=== PATIENT | female | born 1945 | race Caucasian/White ===

== ENCOUNTER 2016-11-18 01:39 | Inpatient (IN) | payer MEDICARE ==
[~2016-11-18] VITALS: Ht 160 cm; Wt 93.2 kg
[2016-11-18] VITALS (21 sets, daily range): BP systolic 72–136; BP diastolic 53–79
[2016-11-18] MEDS ORDERED: ADENOSINE 6 MG/2 ML VIAL. IV ONE (01:43)
[2016-11-18] MEDS ORDERED: MIDAZOLAM HCL/PF 2 MG/2 ML VIAL. ONE ×2 (01:56→09:03)
[2016-11-18] MEDS ORDERED: dilTIAZem IV PUSH 25 MG/5 ML VIAL ONE (01:57)
--- NOTE | 2016-11-18 02:11 | PHYS DOC ---
Past Medical History Past Medical History: No Pertinent History Additional Past Surgical Histo: Knee Smoking: Quit Greater Than 1 Year (40 years ago) Social History Narrative: lives alone Adult General Chief Complaint Chief Complaint: CHEST PAIN HPI HPI Patient is a 70 year old female who presents with chest pain and SOA. She states the pain started Tuesday am. The pain is left sided; dull pressure. It has been "off and on." She called EMS because she was becoming more SOA. She vomited en route (beet juice). She denies any medications or cardiac history. EMS called a "STEMI" from the field; EKG did not transmit. Upon arrival she was diaphoretic and clearly in distress. She was complaining mainly of SOA; she states the chest pain is resolved at this time. No back pain; no abdominal pain. No recent illness. No travel. Review of Systems Review of Systems Constitutional: Denies fever or chills Eyes: Denies change in visual acuity, redness, or eye pain HENT: Denies nasal congestion or sore throat Respiratory: Denies cough; complains of shortness of breath Cardiovascular: see HPI GI: Denies abdominal pain, nausea, vomiting, bloody stools or diarrhea : Denies dysuria or hematuria Musculoskeletal: Denies back pain or joint pain Integument: Denies rash or skin lesions Neurologic: Denies headache, focal weakness or sensory changes Current Medications Current Medications Current Medications Medications (Trade) Dose Ordered Sig/Consuelo Start Time Stop Time Status Last Admin Dose Admin Adenosine (Adenocard) 6 mg STK-MED ONCE 11/18/16 01:43 11/18/16 01:44 DC Diltiazem HCl (Cardizem) 25 mg STK-MED ONCE 11/18/16 01:57 11/18/16 01:58 DC Midazolam HCl (Versed) 2 mg STK-MED ONCE 11/18/16 01:56 11/18/16 01:57 DC Allergies Allergies Allergies Coded Allergies Type Severity Reaction Last Updated Verified Penicillins Allergy Intermediate 11/18/16 Yes Physical Exam Physical Exam Constitutional: Well developed, well nourished, no acute distress, non-toxic appearance. HENT: Normocephalic, atraumatic, bilateral external ears normal, oropharynx moist, no oral exudates, nose normal. Eyes: PERRLA, EOMI, conjunctiva normal, no discharge. Neck: Normal range of motion, no tenderness, supple, no stridor. Cardiovascular:Heart rate regular rhythm, no murmur Lungs & Thorax: Bilateral breath sounds clear to auscultation Abdomen: Bowel sounds normal, soft, no tenderness, no masses, no pulsatile masses. Skin: Warm, dry, no erythema, no rash. Back: No tenderness, no CVA tenderness. Extremities: No tenderness, no cyanosis, no clubbing, ROM intact, no edema. Neurologic: Alert and oriented X 3, normal motor function, normal sensory function, no focal deficits noted. Psychologic: Affect normal, judgement normal, mood normal. Current Patient Data Vital Signs Vital Signs Date Time Temp Pulse Resp B/P (MAP) Pulse Ox O2 Delivery O2 Flow Rate FiO2 11/18/16 02:12 108 137/94 (108) 98 NonRebreather Mask 11/18/16 01:40 97.6 32 97.6 Lab Values Laboratory Tests Test 11/18/16 01:54 11/18/16 01:55 POC Troponin I 10.52 ng/ml (<0.08) White Blood Count 21.6 x10^3/uL (4.0-11.0) H Red Blood Count 5.15 x10^6/uL (3.50-5.40) Hemoglobin 15.4 g/dL (12.0-15.5) Hematocrit 46.3 % (36.0-47.0) Mean Corpuscular Volume 90 fL (79-100) Mean Corpuscular Hemoglobin 30 pg (25-35) Mean Corpuscular Hemoglobin Concent 33 g/dL (31-37) Red Cell Distribution Width 13.1 % (11.5-14.5) Platelet Count 287 x10^3/uL (140-400) Neutrophils (%) (Auto) 68 % (31-73) Lymphocytes (%) (Auto) 22 % (24-48) L Monocytes (%) (Auto) 10 % (0-9) H Eosinophils (%) (Auto) 0 % (0-3) Basophils (%) (Auto) 1 % (0-3) Neutrophils # (Auto) 14.6 x10^3uL (1.8-7.7) H Lymphocytes # (Auto) 4.7 x10^3/uL (1.0-4.8) Monocytes # (Auto) 2.1 x10^3/uL (0.0-1.1) H Eosinophils # (Auto) 0.1 x10^3/uL (0.0-0.7) Basophils # (Auto) 0.2 x10^3/uL (0.0-0.2) Segmented Neutrophils % 68 % (35-66) H Band Neutrophils % 1 % (0-9) Lymphocytes % 23 % (24-48) L Monocytes % 7 % (0-10) Eosinophils % 1 % (0-5) Platelet Estimate Adequate (ADEQUATE) Prothrombin Time 14.2 SEC (11.7-14.0) H Prothrombin Time INR 1.2 (0.8-1.1) H PTT 25 SEC (24-38) Laboratory Tests 11/18/16 01:55 Laboratory Tests Test 11/18/16 01:54 11/18/16 01:55 Bedside Troponin I 10.52 ng/ml White Blood Count 21.6 x10^3/uL Red Blood Count 5.15 x10^6/uL Hemoglobin 15.4 g/dL Hematocrit 46.3 % Mean Corpuscular Volume 90 fL Mean Corpuscular Hemoglobin 30 pg Mean Corpuscular Hemoglobin Concent 33 g/dL Red Cell Distribution Width 13.1 % Platelet Count 287 x10^3/uL Neutrophils (%) (Auto) 68 % Lymphocytes (%) (Auto) 22 % Monocytes (%) (Auto) 10 % Eosinophils (%) (Auto) 0 % Basophils (%) (Auto) 1 % Neutrophils # (Auto) 14.6 x10^3uL Lymphocytes # (Auto) 4.7 x10^3/uL Monocytes # (Auto) 2.1 x10^3/uL Eosinophils # (Auto) 0.1 x10^3/uL Basophils # (Auto) 0.2 x10^3/uL Segmented Neutrophils % 68 % Band Neutrophils % 1 % Lymphocytes % 23 % Monocytes % 7 % Eosinophils % 1 % Platelet Estimate Adequate Prothrombin Time 14.2 SEC Prothromb Time International Ratio 1.2 Activated Partial Thromboplast Time 25 SEC Current Medications Medications (Trade) Dose Ordered Sig/Consuelo Route PRN Reason Start Time Stop Time Status Last Admin Dose Admin Adenosine (Adenocard) 6 mg STK-MED ONCE IV 11/18/16 01:43 11/18/16 01:44 DC Midazolam HCl (Versed) 2 mg STK-MED ONCE .ROUTE 11/18/16 01:56 11/18/16 01:57 DC Diltiazem HCl (Cardizem) 25 mg STK-MED ONCE .ROUTE 11/18/16 01:57 11/18/16 01:58 DC EKG EKG EKG interpreted by myself (0143 AM) with a fib; BBB; diffuse ST changes. ? STEMI -no prior EKG Repeat EKG at 0226 AM: interpreted by myself; afib rate 99; nonsp ST changes; IVCD Radiology/Procedures Radiology/Procedures CXR: interpreted by myself. Diffuse pulm edema; Course & Med Decision Making Course & Med Decision Making Pertinent Labs and Imaging studies reviewed. (See chart for details) Met patient upon arrival by EMS. Diffuse diaphoresis; anxious. EKG (no prior) with afib but BBB-unknown if this is new. called STEMI. Spoke with Dr Kraft ; treat for afib. BP 163/125; cardizem bolus and drip. Spoke again with Dr Kraft and will start on Heparin and admit ICU. CXR with pulm edema;Lasix IV. Lab returned at 0230 AM: trop 10.52; EKG with afib with BBB. recontacted Dr Kraft and he will cath this am. BP 144/112, P 95 at 0225 AM. 0345 am: BP 158/85, R 114 but in afib; on 10 mg Cardizem; heparin drip. U.O. approx 800 cc thus far. On nasal cannula and resting much more comfortably. admit orders placed; contacted Dr Fragoso for admission Dragon Disclaimer Felicitas Disclaimer This electronic medical record was generated, in whole or in part, using a voice recognition dictation system. Departure Departure Impression: Primary Impression: Acute coronary syndrome Additional Impressions: Atrial fibrillation with rapid ventricular response Acute pulmonary edema Disposition: ADMITTED INPATIENT Admitting Physician: Perfecto Fragoso Condition: CRITICAL Referrals: NO PCP (PCP) Critical Care Note Total Time (mins): 30 Comments Critical care: She was evaluated for critical care with life-threatening injury and illness. Care included evaluation patient, interpretation of lab, radiology , EKG. Discussion with EMS, discussion with consultants. Problems: Critical Care Time Critical care time was 30 minutes exclusive of procedures. Problem Qualifiers EDSON SÁNCHEZ MD November 18, 2016 02:11
[2016-11-18 02:14] LABS: BASO # 0.2 x10^3/uL (0.0-0.2); BASO % 1 % (0-3); EOS % 0 % (0-3); HEMATOCRIT 46.3 % (36.0-47.0); HEMOGLOBIN 15.4 g/dL (12.0-15.5); LYMPH # 4.7 x10^3/uL (1.0-4.8); LYMPH % 22 % (24-48); MEAN CORPUSCULAR HEMOGLOBIN 30 pg (25-35); MEAN CORPUSCULAR HGB CONC 33 g/dL (31-37); MEAN CORPUSCULAR VOLUME 90 fL (79-100); MONO % 10 % (0-9); NEUT % 68 % (31-73); PLATELET COUNT 287 x10^3/uL (140-400); RED BLOOD COUNT 5.15 x10^6/uL (3.50-5.40); RED CELL DISTRIBUTION WIDTH 13.1 % (11.5-14.5); WHITE BLOOD COUNT 21.6 x10^3/uL (4.0-11.0)
[2016-11-18 02:23] LABS: INR 1.2 (0.8-1.1); PROTHROMBIN TIME PATIENT 14.2 SEC (11.7-14.0)
[2016-11-18] MEDS ORDERED: HEPARIN for IV BOLUS 10,000 UNIT/10 ML VIAL. IV PRN (02:30)
[2016-11-18] MEDS ORDERED: dilTIAZem IV PUSH 25 MG/5 ML VIAL IVP ONE (02:30)
[2016-11-18] MEDS: HEPARIN 25,000UTS/500ML PREMIX 500 ML IV PRN ×2 (02:52→07:40)
[2016-11-18 03:00] LABS: CALCIUM 8.7 mg/dL (8.5-10.1); CREATININE 0.7 mg/dL (0.6-1.0); POTASSIUM 4.4 mmol/L (3.5-5.1)
[2016-11-18] MEDS ORDERED: FUROSEMIDE 40 MG/4 ML VIAL. IVP ONE (03:00)
[2016-11-18] MEDS ORDERED: HEPARIN for IV BOLUS 10,000 UNIT/10 ML VIAL. IV ONE (03:00)
[2016-11-18 03:07] LABS: ALBUMIN 3.4 g/dL (3.4-5.0); ALBUMIN/GLOBULIN RATIO 1.1 (1.0-1.7); TOTAL BILIRUBIN 0.9 mg/dL (0.2-1.0); TOTAL PROTEIN 6.5 g/dL (6.4-8.2)
[2016-11-18 03:13] LABS: CKMB MASS 153.2 ng/mL (0.0-3.6)
[2016-11-18] MEDS ORDERED: ONDANSETRON PF 4 MG/2 ML VIAL. IV PRN (04:00)
[2016-11-18] MEDS ORDERED: HEPARIN 25,000UTS/500ML PREMIX 500 ML IV ONE (04:00)
[2016-11-18 04:10] LABS: % EOS 1 % (0-5)
[2016-11-18 04:11] LABS: PLT ESTIMATE ADEQUATE (ADEQUATE)
[2016-11-18] MEDS ORDERED: MORPHINE SULFATE 2 MG/ML DISP.SYRIN. IV ONE (04:15)
[2016-11-18 04:19] LABS: BILIRUBIN,URINE NEGATIVE (NEG); GLUCOSE,URINE 500 mg/dL (NEG); NITRITE,URINE NEGATIVE (NEG); PH,URINE 5.5; PROTEIN,URINE 30 mg/dL (NEG-TRACE); UROBILINOGEN,URINE 0.2 mg/dL (0.2 mg/dL)
[2016-11-18 04:32] LABS: BACTERIA,URINE MOD /HPF (0-FEW); SQUAMOUS EPITHELIAL CELL,UR MOD /LPF
--- NOTE | 2016-11-18 04:51 | ACF ---
Admission Forms Criteria CHEST PAIN Clinical Indications for Admission to Inpatient Care (Place 'X' for any and all applicable criteria): Admission is indicated for chest pain and ANY ONE of the following(1)(2)(3)(4)(5 ): [X]I. Angina with acute coronary syndrome (Also use Myocardial Infarction or Angina guideline) [ ]II. Hemodynamic instability [ ]III. Angina needing acute intervention as indicated by ALL of the following( 11)(12): [ ]a) Unstable angina is present as indicated by angina that is ANY ONE of the following: [ ]i) New onset [ ]ii) Nocturnal [ ]iii) Prolonged at rest [ ]iv) Progressive [ ]b) Angina warrants acute intervention as indicated by ANY ONE of the following: [ ]i) Recurrent angina (e.g, not responding as previously to treatment) [ ]ii) Angina at rest or with low-level activities despite initial medical therapy [ ]iii) New or presumably new ST-segment depression on ECG [ ]iv) Signs or symptoms of heart failure (eg, dyspnea, pulmonary edema) [ ]v) New or worsening mitral regurgitation [ ]vi) Hemodynamic instability [ ]vii) Dangerous arrhythmia (eg, sustained ventricular tachycardia) [ ]viii) History of percutaneous coronary intervention within 6 months [ ]ix) History of coronary artery bypass graft surgery [ ]x) EBONI risk score of 2 or greater[A] [ ]xi) History of Diabetes(14) [ ]xii) High-risk cardiac ischemia findings on noninvasive testing (e.g, echocardiogram, treadmill testing, nuclear scan) [ ]xiii) Chronic renal insufficiency (ie, estimated GFR less than 60 mL/min/1.732m) [ ]xiv) Left ventricular ejection fraction less than 40% [ ]IV. Evidence of WI (eg, cardiac biomarkers positive, ST-segment elevation on ECG) also use Myocardial Infarction Criteria Form. [ ]V. Pulmonary edema [ ]. Respiratory distress [ ]VII. Chest pain indicative of serious diagnosis other than coronary artery disease (eg, aortic dissection) [ ]VIII. Contraindications and/or Inappropriate clinical situations for Observational Care in patients with Chest Pain, when ANY ONE of the following is required: [ ]a) Patient with risk factor for pulmonary embolism, acute coronary syndrome and myocardial infarction (18) [ ]b) Patient with Pulmonary embolism require an average LOS of 4.3 days, therefore emergency department observation management is inappropriate 18,23 [ ]c) Painful condition/s in the elderly, have the highest rate of recidivism after emergency department observation management (10.8%) 20,21,22 [ ]d) Elevated cardiac biomarker requires intensive and exhaustive care (19) [ ]IX. General contraindications and/or Inappropriate clinical situations for Observational Care in patients with Chest Pain, when ANY ONE of the following is required: [ ]a) Prediction of prolongation of LOS based on ANY ONE of the following may be considered as a contraindication for observational care 2, 3, 4, 5, 6, 7, 8, 9, 10, 11 [ ]i) Age > 65 yrs. [ ]ii) Patient arriving by ambulance [ ]iii) Patient with high acuity [ ]iv) Patient requiring vital sign monitoring [ ]v) Patient on IV medication [ ]b) Systolic blood pressures 180mmHg 3,12 [ ]c) Patient with altered mental status including delirium and other alteration of consciousness, (3) [ ]d) Patient whose discharge disposition will be to a assisted home or rehabilitation home should not be managed in Emergency Department Observation Unit. CMS rule requires 3 days hospital stay before such placement. 3,13 [ ]e) Patient with failure to thrive due to broad array of etiologies 3,16,17 [ ]f) Inability to ambulate 3,14 Extended stay beyond goal length of stay may be needed for (1)(28): [ ]a) Specific condition diagnosed after evaluation (eg, pulmonary embolism, aortic dissection) [ ]b) Unstable angina [ ]c) Continued suspicion of acute coronary syndrome with inability to complete needed cardiac evaluation (eg, patient clinically unable to undergo stress testing) [ ]d) Myocardial infarction (Contents from ANGINA and CHEST PAIN clinical indications for admission to inpatient care have been integrated in this form) The original [facility] content created by [employer] has been revised. The portions of the content which have been revised are identified through the use of italic text or in bold, and [facility] has neither reviewed nor approved the modified material. All other unmodified content is copyright [employer]. Please see references footnoted in the original [facility] edition 2016 Admission Criteria Met?: Yes JOHN NAGEL November 18, 2016 04:51
[2016-11-18] MEDS ORDERED: MULT-667 PO (06:56)
[2016-11-18] MEDS ORDERED: CYCL1DRO EACHEYE (06:56)
[2016-11-18] MEDS ORDERED: CHOL10003 PO (06:56)
[2016-11-18] MEDS ORDERED: LORA10TA68 PO (06:56)
[2016-11-18] MEDS ORDERED: MAGN400C PO (06:56)
[2016-11-18 07:12] LABS: POTASSIUM ISTAT 5.1 mmol/L (3.5-5.0)
[2016-11-18] MEDS ORDERED: ASCO500T3 PO (07:12)
--- NOTE | 2016-11-18 07:49 | RAD ---
Indication chest pain. A single view of the chest was obtained. No prior imaging is available. Heart size is normal. There is interstitial prominence most suggestive of mild interstitial pulmonary edema. (A component of fibrosis or inflammation is not entirely excluded. Clinical correlation advised). A focal consolidated pneumonia is not seen. There are perhaps tiny pleural effusions. There is no pneumothorax. IMPRESSION: Probable mild interstitial edema. No focal consolidated pneumonia seen
--- NOTE | 2016-11-18 07:49 | EKG ---
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
--- NOTE | 2016-11-18 07:50 | EKG ---
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
--- NOTE | 2016-11-18 07:51 | EKG ---
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
[2016-11-18] MEDS ORDERED: LIDOCAINE 2% 20 ML VIAL. ONE ×2 (08:30→10:35)
[2016-11-18] MEDS ORDERED: IOHEXOL 300 MG/ML 100ML VIAL. ONE (08:31)
[2016-11-18] MEDS ORDERED: HEPARIN for ARTERIAL LINE 1,500 ML ONE (08:31)
--- NOTE | 2016-11-18 09:00 | PDOC ---
MODERATE SEDATION ASSESSMENT RISKS/ALTERNATIVES Risks/Alternatives Risks and alternatives of this type of sedation and procedure discussed with: RISK/ALTERNATIVES: Patient H & P ON CHART H & P H & P on chart and reviewed for co-morbid conditions and appropriate labs. H&P ON CHART: Yes STATUS PREG STATUS ASSESSED: N/A MEDS/ALLERGIES REVIEWED Meds/Allergies Reviewed Medications and Allergies including time and route of recently administered narcotics and sedatives. MEDS/ALLERGIES REVIEWED: Yes ASA RATING ASA RATING: III AIRWAY ASSESSMENT Airway Assessment Airway patency, oral function limitations, presence of caps, crowns, dentures, partials, and ability to extend neck assessed. AIRWAY ASSESSMENT: Yes MALLAMPATI SCORE MALLAMPATI SCORE: III PRE-SEDATION ASSESSMENT PRE-SEDATION ASSESSMENT: Yes JOHNATHON RYAN MD November 18, 2016 09:00
[2016-11-18] MEDS ORDERED: NITROGLYCERIN 200 MCG/2 ML SYRINGE FOR CATH/VASC LAB. ONE (09:02)
[2016-11-18] MEDS ORDERED: VERAPAMIL 5 MG/2 ML VIAL. ONE (09:02)
[2016-11-18] MEDS ORDERED: HEPARIN for IV BOLUS 10,000 UNIT/10 ML VIAL. ONE (09:03)
[2016-11-18] MEDS ORDERED: fentaNYL PF VIAL 100 MCG/2 ML VIAL ONE (09:03)
[2016-11-18] MEDS ORDERED: TIROFIBAN 12.5MG -0.9% NS 0 ML IV ONE (09:27)
[2016-11-18] MEDS ORDERED: BIVALIRUDIN 250 MG VIAL. IV ONE (09:27)
[2016-11-18] MEDS ORDERED: MIDAZOLAM HCL/PF 2 MG/2 ML VIAL. IV ONE (09:45)
[2016-11-18] MEDS ORDERED: HEPARIN for IV BOLUS 10,000 UNIT/10 ML VIAL. IART ONE (09:45)
[2016-11-18] MEDS ORDERED: CLOPIDOGREL BISULFATE 75 MG TABLET PO ONE (09:45)
[2016-11-18] MEDS ORDERED: NITROGLYCERIN 200 MCG/2 ML SYRINGE FOR CATH/VASC LAB. IART ONE (09:45)
[2016-11-18] MEDS ORDERED: IOHEXOL 300 MG/ML 100ML VIAL. IART ONE (09:45)
[2016-11-18] MEDS ORDERED: LIDOCAINE 1% / SOD BICARB 8.4% 20 ML VIAL. IJ ONE (09:45)
[2016-11-18] MEDS ORDERED: fentaNYL PF VIAL 100 MCG/2 ML VIAL IV ONE (09:45)
[2016-11-18] MEDS ORDERED: CONTRAST GIVEN MC PRN (09:45)
[2016-11-18] MEDS ORDERED: VERAPAMIL 5 MG/2 ML VIAL. IART ONE (09:45)
[2016-11-18] MEDS ORDERED: CLOPIDOGREL BISULFATE 75 MG TABLET ONE (09:46)
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
[2016-11-18] MEDS ORDERED: PNEUMOCOCCAL VAX SCREEN BY RX. MC PRN (11:30)
--- NOTE | 2016-11-18 11:50 | CARD ---
APPROVED REPORT Procedure(s) performed: Left Heart Catheterization, Coronary angiography, Left ventriculogram HISTORY The patient is a 70 year-old female with a history of : hypertension. INDICATION The indication(s) include : non-STEMI Trop of 15., atrial fibrillation, dyspnea. PROCEDURE NARRATIVE The patient was brought urgently to the cardiac catheterization lab. A timeout was performed confirm ing the patient's name, date of , procedure, and site of procedure. All necessary personnel wer e wearing the appropriate protective equipment and radiation monitor devices. After explaining the r isks and benefits of the procedure and alternatives, informed consent was obtained. (See nursing note s for medications administered). The right wrist was sterilely prepped and draped in the usual fashi on. The right wrist was infiltrated with 1 mL of 2% lidocaine for subcutaneous anesthesia. A 6 Fren ch Terumo glide sheath was inserted into the right radial artery without difficulty. Right and left coronary angiography was performed using a 6Fr TIG 4.0 catheter. Left ventricular end diastolic pres sure was obtained with a pigtail catheter and pullback was performed after left ventriculography. Al l catheter exchanges and advancements were performed over a guidewire. At case completion the right radial sheath was removed and a Terumo radial band was applied with 13 ml of air. The patient tolera diego the procedure well and there were no immediate complications. HEMODYNAMICS: LVEDP 18 mm Hg No gradient on LV to aortic pullback. LEFT VENTRICULOGRAM: EF 25% Anterobasal: Normal. Anterolateral: moderate hypokinesis Apical: moderate hypokinesis. Diaphragmatic: Akinesis Posterobasal: Normal CORONARY ANGIOGRAPHY: LM is a large caliber vessel with normal angiographic appearance. LAD is a large caliber vessel with normal angiographic appearance. D1 is a moderate caliber vessel with a proximal 50-60% stenosis. LCx is a moderate caliber non-dominant vessel with normal angiographic appearance. OM1 is a moderate caliber vessel with normal angiographic appearance, the most distal portion of the vessel has sluggish flow and cannot rule out presence of embolic phenomenon in the setting of afib. RCA is a large caliber dominant vessel with proximal to mid 30% stenosis. RPDA and RPL are moderate caliber vessels with normal angiographic appearance. Conclusion 1. Severe LV dysfunction. EF 25% 2. Normal left ventricular filling pressures. 3. Two vessel coronary artery disease involving the OM1 and Diagonal. 4. Possible embolic infarct of the very distal OM1. 5. 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 Recommendations Aggressive medical therapy to include ASA, Plavix and initiation of Eliquis Plan for NOLA/CVN tomorrow. HF regimen to be started later today as BP/HR allows.
[2016-11-18] MEDS: CLOPIDOGREL BISULFATE 75 MG TABLET PO SCH (14:00)
[2016-11-18] MEDS ORDERED: BENZOCAINE ONE 20% MUCOSAL SPRAY. MM (14:15)
[2016-11-18] MEDS ORDERED: LIDOCAINE 2% TOPICAL JELLY 5GM TUBE. TP ONE (14:15)
[2016-11-18] MEDS ORDERED: LIDOCAINE 2% VISCOUS 15 ML SOLUTION. MM ONE (14:15)
[2016-11-18] MEDS ORDERED: 0.9 % SODIUM CHLORIDE 10 ML DISP.SYRIN. IV PRN ×2 (14:15)
--- NOTE | 2016-11-18 15:25 | HP ---
ADMIT DATE: 11/18/2016 CHIEF COMPLAINT: Chest pain. HISTORY OF PRESENT ILLNESS: The patient is a pleasant 71-year-old female who appears to be younger than her stated age. She presented with chest pain last night. It has been occurring for a couple of days, was left sided, pressure-like in sensation. She tried taking some [id number] medications, but that did not seem to help. EMS was called. She was brought to the ER. She was then taken to the [facility] this morning. Surprisingly, her catheterization was clean, but she did have a bump in her troponin before the catheterization to 15.227. The patient is currently being examined in the ICU where her son is present. PAST MEDICAL HISTORY: Dry eyes, allergic rhinitis. ALLERGIES: PENICILLIN. FAMILY HISTORY: Coronary artery disease. SOCIAL HISTORY: She does not drink, smoke, or take drugs. MEDICATIONS: Reviewed. Please refer to the MRAD. REVIEW OF SYSTEMS: GENERAL: No history of weight change, weakness, or fevers. SKIN: No bruising, hair changes, or rashes. EYES: No blurred, double, or loss of vision. NOSE AND THROAT: No history of nosebleeds, hoarseness, or sore throat. HEART: She complains of sleepiness, and she just got out of the [facility], so she probably is a little sleepy. LUNGS: Denies cough, hemoptysis, wheezing, or shortness of breath. GASTROINTESTINAL: Denies changes in appetite, nausea, vomiting, diarrhea, or constipation. GENITOURINARY: No history of frequency, urgency, hesitancy, or nocturia. NEUROLOGIC: Denies history of numbness, tingling, tremor, or weakness. PSYCHIATRIC: No history of panic, anxiety, or depression. ENDOCRINE: No history of heat or cold intolerance, polyuria, or polydipsia. EXTREMITIES: Denies muscle weakness, joint pain, pain on walking, or stiffness. PHYSICAL EXAMINATION: VITAL SIGNS: Temperature afebrile, pulse 92, respirations 18, blood pressure 104/60, and O2 saturation 93% on room air. GENERAL: She is sleeping. She awakens. HEART: Distant S1, S2 with a soft S3. LUNGS: Slight crackles. ABDOMEN: Soft, positive bowel sounds. EXTREMITIES: 1+ edema, but is nonpitting. ENDOCRINE: No thyromegaly. LYMPHATICS: No cervical nodes. HEMATOPOIETIC: No bruising. LABORATORY DATA: White count is 21, hemoglobin 15, and platelets 287. Electrolytes: Sodium 126, potassium 5.1, chloride 96, bicarbonate 17, BUN 18, creatinine 0.5, and glucose 328. Troponin is 15.227. BNP 9694. Chest x-ray shows interstitial edema. ASSESSMENT AND PLAN: Chest pain with new onset of acute congestive heart failure, probable systolic. She also has an elevation of her troponin quite high, but her coronaries apparently were not too bad. I think the ____ lesion was 50%. Nevertheless, we are going to continue cardiac monitoring in the ICU, serial enzymes, and serial EKGs. With her hyponatremia, we are going to have to give her a little bit of sodium. We will try to keep the volume of the fluids and the sodium to a minimum, so we do not worsen her heart failure. I discussed the case at length with her son. We are also adding an IV antibiotic as I suspect she has some sepsis, and she does have urinary tract infection as well. LONG-TERM PROGNOSIS: Guarded. SUSHMA CHATMAN DO DR: AVNI/elsie JOB#: [id number] / [id number]
[2016-11-18] MEDS: APIXABAN 5 MG TABLET. PO SCH ×2 (15:43→21:15)
[2016-11-18] MEDS: CHOLECALCIFEROL (VITAMIN D3) 1,000 UNIT TABLET PO SCH (15:43)
--- NOTE | 2016-11-18 16:55 | CARD ---
APPROVED REPORT EXAM: Two-dimensional and M-mode echocardiogram with Doppler and color Doppler. Other Information Quality : Average Rhythm : Atrial Fibrillation INDICATION Cardiomyopathy 2D DIMENSIONS RVDd2.6 (2.9-3.5cm)Left Atrium(2D)3.3 (1.6-4.0cm) IVSd1.0 (0.7-1.1cm)Aortic Root(2D)3.1 (2.0-3.7cm) LVDd4.9 (3.9-5.9cm)LVOT Diameter2.0 (1.8-2.4cm) PWd1.0 (0.7-1.1cm)LVDs3.9 (2.5-4.0cm) SV49.3 mlLVEF(%)23.0 (>50%) Aortic Valve AoV Peak Abram.133.0cm/sAoV VTI23.1cm AO Peak GR.7.1mmHgLVOT VTI 14.00cm AO Mean GR.4mmHg Mitral Valve MV E Hwccyzff00.8cm/sMV E Peak Gr.88mmHg MV DECEL [id number] XXH04ms MVA (PHT)5.00cm2 Tricuspid Valve TR P. [id number]/sRAP [id number] TR Peak Gr.[id number] LEFT VENTRICLE The left ventricle is normal size. There is normal left ventricular wall thickness. Left ventricle sy stolic function is moderately to severely impaired. The Ejection Fraction is 20-25%. There is global hypokinesis of the left ventricle in a pattern suggestive of stress induced cardiomyopathy. Unable to assess diastolic function. RIGHT VENTRICLE The right ventricle is normal size. The right ventricular systolic function is normal. ATRIA The left atrium size is normal. The right atrium size is normal. The interatrial septum is intact wit h no evidence for an atrial septal defect or patent foramen ovale as noted on 2-D or Doppler imaging. AORTIC VALVE The aortic valve is normal in structure and function. The aortic valve is trileaflet. Doppler and Col or Flow revealed no significant aortic regurgitation. There is no significant aortic valvular stenosi s. MITRAL VALVE The mitral valve leaflets are thickened. There is no mitral valve stenosis. Doppler and Color Flow re vealed mild mitral regurgitation. TRICUSPID VALVE The tricuspid valve is normal in structure and function. Doppler and Color Flow revealed mild tricusp id regurgitation. The PA pressure was estimated at 37 mmHg. There is no tricuspid valve stenosis. PULMONIC VALVE The pulmonic valve is not well visualized. Doppler and Color Flow revealed no pulmonic valvular regur gitation. There is no pulmonic valvular stenosis. GREAT VESSELS The aortic root is normal in size. Pulmonary veins not well visualized. The IVC is dilated and collap ses >50% with inspiration. PERICARDIAL EFFUSION There is a moderate pleural effusion. There is a trace pericardial effusion. Critical Notification Critical Value: No <Conclusion> Left ventricle systolic function is moderately to severely impaired. The Ejection Fraction is 20-25%. There is global hypokinesis of the left ventricle in a pattern suggestive of stress induced cardiomyo robert. There is a moderate pleural effusion.
[2016-11-18] MEDS: METOPROLOL TART IMMED RELEASE 25 MG TABLET. PO SCH (18:00)
[2016-11-18] MEDS: cycloSPORINE 0.05% OPTH 1 DROP DROPERETTE OU SCH (21:13)
[2016-11-18] MEDS: ASCORBIC ACID 500 MG TABLET PO SCH (21:13)
[2016-11-19] VITALS (17 sets, daily range): BP systolic 104–151; BP diastolic 52–97
[2016-11-19] MEDS: METOPROLOL TART IMMED RELEASE 25 MG TABLET. PO SCH ×5 (01:19→23:19)
[2016-11-19 05:45] LABS: BASO % 0 % (0-3); EOS % 0 % (0-3); HEMATOCRIT 41.6 % (36.0-47.0); HEMOGLOBIN 13.8 g/dL (12.0-15.5); LYMPH # 2.5 x10^3/uL (1.0-4.8); LYMPH % 17 % (24-48); MEAN CORPUSCULAR HEMOGLOBIN 30 pg (25-35); MEAN CORPUSCULAR HGB CONC 33 g/dL (31-37); MEAN CORPUSCULAR VOLUME 89 fL (79-100); MONO % 14 % (0-9); NEUT % 69 % (31-73); PLATELET COUNT 227 x10^3/uL (140-400); RED BLOOD COUNT 4.69 x10^6/uL (3.50-5.40); RED CELL DISTRIBUTION WIDTH 12.9 % (11.5-14.5); WHITE BLOOD COUNT 15.3 x10^3/uL (4.0-11.0)
[2016-11-19 06:08] LABS: CALCIUM 8.9 mg/dL (8.5-10.1); CREATININE 0.6 mg/dL (0.6-1.0); GFR 99.1; POTASSIUM 4.3 mmol/L (3.5-5.1)
[2016-11-19] MEDS ORDERED: IV RINGERS,LACTATED 1000ML 1,000 ML IV SCH (07:00)
[2016-11-19] MEDS: ANTI-COAG MONITOR BY PHARMACY. MC PRN (08:39)
[2016-11-19] MEDS: ASPIRIN ENTERIC COATED 81 MG TABLET.DR. PO SCH (08:47)
[2016-11-19] MEDS: MAGNESIUM OXIDE 400 MG TABLET PO SCH (08:47)
[2016-11-19] MEDS: CHOLECALCIFEROL (VITAMIN D3) 1,000 UNIT TABLET PO SCH (08:47)
[2016-11-19] MEDS: cycloSPORINE 0.05% OPTH 1 DROP DROPERETTE OU SCH ×2 (08:47→20:31)
[2016-11-19] MEDS: APIXABAN 5 MG TABLET. PO SCH ×2 (08:47→20:30)
[2016-11-19] MEDS: CLOPIDOGREL BISULFATE 75 MG TABLET PO SCH (08:47)
[2016-11-19] MEDS: ASCORBIC ACID 500 MG TABLET PO SCH ×2 (08:47→20:30)
[2016-11-19] MEDS ORDERED: PNEUMOC CONJ VACC 23-VALENT 0.5 ML VIAL. VAX IM ONE (09:00)
[2016-11-19] MEDS ORDERED: BENZOCAINE ONE 20% MUCOSAL SPRAY. MM (09:00)
[2016-11-19] MEDS ORDERED: LIDOCAINE 2% TOPICAL JELLY 5GM TUBE. TP ONE (09:00)
[2016-11-19] MEDS ORDERED: LIDOCAINE 2% VISCOUS 15 ML SOLUTION. ONE (09:52)
[2016-11-19] MEDS ORDERED: LIDOCAINE 2% TOPICAL JELLY 30GM TUBE. TP ONE ×2 (09:52→14:05)
[2016-11-19] MEDS ORDERED: SODIUM CHLORIDE 3 % 200 ML IV ONE (10:45)
--- NOTE | 2016-11-19 11:12 | PDOC2 ---
CONSULT Date of Consult Date of Consult DATE: 11/19/16 TIME: 11:06 Reason for Consult Reason for Consult: HYPONATREMIA Referring Physician Referring Physician: NEYMAR Identification/Chief Complaint Chief Complaint SOB Source Source: Chart review, Patient History of Present Illness Reason for Visit: THIS IS A 70 YR OLD ADMITTED WITH PROGRESSIVE SOB. SHE WAS NOTED TO BE IN AFIB RVR AND IN CHF. HER NA IS LOW AT 123. DENIED ANY PREVIOUS PROBLEMS WITH THIS. DOES STATE THAT SHE HAS HAD A HX OF HYPOTHYROIDISM BUT HAS NOT BEEN TAKING HER THYROID SUPPLEMENTS. SHE HAS NOT BEEN TAKING ANY DIURETICS AT HOME BUT DID RECEIVE IV LASIX HERE AND HAD A GOOD DIURESIS Past Medical History Cardiovascular: AFIB, HTN ENT: Allergic Rhinitis Family History Family History: No Significant Current Problem List Problem List Problems Medical Problems: (1) Acute coronary syndrome Status: Acute (2) Acute pulmonary edema Status: Acute (3) Atrial fibrillation with rapid ventricular response Status: Acute Current Medications Current Medications Current Medications Adenosine (Adenocard) 6 mg STK-MED ONCE IV ; Start 11/18/16 at 01:43; Stop 11/18 at 01:44; Status DC Midazolam HCl (Versed) 2 mg STK-MED ONCE .ROUTE ; Start 11/18/16 at 01:56; Stop 11/18/16 at 01:57; Status DC Diltiazem HCl 125 mg/Dextrose 125 ml @ 0 mls/hr 1X ONCE IV Last administered on 11/18/16 02:07; Start 11/18/16 at 02:30; Stop 11/18/16 at 02:31; Status DC Diltiazem HCl (Cardizem) 10 mg 1X ONCE IVP Last administered on 11/18/16 01: 58; Start 11/18/16 at 02:30; Stop 11/18/16 at 02:31; Status DC Diltiazem HCl (Cardizem) 25 mg STK-MED ONCE .ROUTE ; Start 11/18/16 at 01:57; Stop 11/18/16 at 01:58; Status DC Heparin Sodium (Porcine) (Heparin Sodium) 4,000 unit 1X ONCE IV Last administered on 11/18/16 02:52; Start 11/18/16 at 03:00; Stop 11/18/16 at 13:13 ; Status DC Heparin Sodium/ Dextrose 500 ml @ 0 mls/hr CONT PRN IV SEE I/O RECORD Last administered on 11/18/16 07:40; Start 11/18/16 at 02:30; Stop 11/18/16 at 13:13 ; Status DC Heparin Sodium (Porcine) (Heparin Sodium) 2,400 unit PRN Q6HRS PRN IV FOR UFH LEVEL LESS THAN 0.2; Start 11/18/16 at 02:30; Stop 11/18/16 at 13:13; Status DC Furosemide (Lasix) 60 mg 1X ONCE IVP Last administered on 11/18/16 02:46; Start 11/18/16 at 03:00; Stop 11/18/16 at 03:01; Status DC Morphine Sulfate 2 mg 1X ONCE IV ; Start 11/18/16 at 04:15; Stop 11/18/16 at 04 :16; Status DC Ondansetron HCl (Zofran) 4 mg PRN Q8HRS PRN IV NAUSEA/VOMITING Last administered on 11/18/16 11:55; Start 11/18/16 at 04:00; Stop 11/19/16 at 03:59 ; Status DC Diltiazem HCl 125 mg/Dextrose 125 ml @ 0 mls/hr CONT PRN IV SEE I/O RECORD; Start 11/18/16 at 04:00; Stop 11/18/16 at 13:12; Status DC Heparin Sodium/ Dextrose 500 ml @ 0 mls/hr 1X ONCE IV ; Start 11/18/16 at 04:00 ; Stop 11/18/16 at 04:02; Status DC Lidocaine HCl 20 ml STK-MED ONCE .ROUTE ; Start 11/18/16 at 08:30; Stop at 08:31; Status DC Heparin Sodium/ Sodium Chloride 1,500 ml @ As Directed STK-MED ONCE .ROUTE ; Start 11/18/16 at 08:31; Stop 11/18/16 at 08:32; Status DC Iohexol (Omnipaque 300 Mg/ml) 100 ml STK-MED ONCE .ROUTE ; Start 11/18/16 at 08: 31; Stop 11/18/16 at 08:32; Status DC Nitroglycerin (Nitroglycerin) 200 mcg STK-MED ONCE .ROUTE ; Start 11/18/16 at 09 :02; Stop 11/18/16 at 09:03; Status DC Verapamil HCl (Verapamil) 5 mg STK-MED ONCE .ROUTE ; Start 11/18/16 at 09:02; Stop 11/18/16 at 09:03; Status DC Midazolam HCl (Versed) 2 mg STK-MED ONCE .ROUTE ; Start 11/18/16 at 09:03; Stop 11/18/16 at 09:04; Status DC Fentanyl Citrate (Fentanyl 2ml Vial) 100 mcg STK-MED ONCE .ROUTE ; Start at 09:03; Stop 11/18/16 at 09:04; Status DC Heparin Sodium (Porcine) (Heparin Sodium) 10,000 unit STK-MED ONCE .ROUTE ; Start 11/18/16 at 09:03; Stop 11/18/16 at 09:04; Status DC Dopamine HCl/ Dextrose 0 ml @ As Directed STK-MED ONCE IV ; Start 11/18/16 at 09 :26; Stop 11/18/16 at 09:27; Status DC Tirofiban/Sodium Chloride 0 ml @ As Directed STK-MED ONCE IV ; Start 11/18/16 at 09:27; Stop 11/18/16 at 09:28; Status DC Bivalirudin (Angiomax) 250 mg STK-MED ONCE IV ; Start 11/18/16 at 09:27; Stop at 09:28; Status DC Nitroglycerin (Nitroglycerin) 200 mcg 1X ONCE IART Last administered on 09:51; Start 11/18/16 at 09:45; Stop 11/18/16 at 09:46; Status DC Verapamil HCl (Verapamil) 2.5 mg 1X ONCE IART Last administered on 11/18/16 09:52; Start 11/18/16 at 09:45; Stop 11/18/16 at 09:46; Status DC Heparin Sodium (Porcine) (Heparin Sodium) 2,500 unit 1X ONCE IART Last administered on 11/18/16 09:50; Start 11/18/16 at 09:45; Stop 11/18/16 at 09:46 ; Status DC Heparin Sodium/ Sodium Chloride 1,000 unit 1X ONCE IART Last administered on 09:52; Start 11/18/16 at 09:45; Stop 11/18/16 at 09:46; Status DC Lidocaine/Sodium Bicarbonate (Buffered Lidocaine 1%) 1 ml 1X ONCE IJ Last administered on 11/18/16 09:45; Start 11/18/16 at 09:45; Stop 11/18/16 at 09:46 ; Status DC Midazolam HCl (Versed) 2 mg 1X ONCE IV Last administered on 11/18/16 09:54; Start 11/18/16 at 09:45; Stop 11/18/16 at 09:46; Status DC Fentanyl Citrate (Fentanyl 2ml Vial) 50 mcg 1X ONCE IV Last administered on 09:53; Start 11/18/16 at 09:45; Stop 11/18/16 at 09:46; Status DC Iohexol (Omnipaque 300 Mg/ml) 99 ml 1X ONCE IART Last administered on 09:51; Start 11/18/16 at 09:45; Stop 11/18/16 at 09:46; Status DC Clopidogrel Bisulfate (Plavix) 600 mg 1X ONCE PO Last administered on 09:53; Start 11/18/16 at 09:45; Stop 11/18/16 at 09:46; Status DC Info (Do NOT chart on this entry -- for MONITORING) 1 each PRN DAILY PRN MC SEE COMMENTS; Start 11/18/16 at 09:45; Stop 11/20/16 at 09:44 Clopidogrel Bisulfate (Plavix) 75 mg STK-MED ONCE .ROUTE ; Start 11/18/16 at 09: 46; Stop 11/18/16 at 09:47; Status DC Lidocaine HCl 20 ml STK-MED ONCE .ROUTE ; Start 11/18/16 at 10:35; Stop at 10:36; Status DC Heparin Sodium/ Sodium Chloride 500 ml @ As Directed STK-MED ONCE .ROUTE ; Start 11/18/16 at 10:35; Stop 11/18/16 at 10:36; Status DC Pneumococcal Polyvalent Vaccine (Do NOT chart on this placeholder) 1 each PRN 1X PRN MC SEE COMMENTS; Start 11/18/16 at 11:30; Status UNV Pneumococcal Polyvalent Vaccine (Pneumovax 23) 0.5 ml ONCE ONCE VAX IM ; Start 11/19/16 at 09:00; Stop 11/19/16 at 09:01; Status DC Metoprolol Tartrate (Lopressor) 25 mg Q6HRS PO Last administered on 11/19/16 07:17; Start 11/18/16 at 13:15 Apixaban (Eliquis) 5 mg BID PO Last administered on 11/19/16 08:47; Start at 14:00 Clopidogrel Bisulfate (Plavix) 75 mg DAILYWBKFT PO Last administered on 08:47; Start 11/18/16 at 14:00 Aspirin (Ecotrin) 81 mg DAILYWBKFT PO Last administered on 11/19/16 08:47; Start 11/19/16 at 08:00 Ascorbic Acid (Vitamin C) 500 mg BID PO Last administered on 11/19/16 08:47; Start 11/18/16 at 21:00 Vitamin D (Vitamin D3) 3,000 unit DAILY PO Last administered on 11/19/16 08:47 ; Start 11/18/16 at 15:00 Cyclosporine (Restasis) 1 drop BID OU Last administered on 11/19/16 08:47; Start 11/18/16 at 21:00 Magnesium Oxide (Magnesium Oxide) 400 mg DAILY PO Last administered on 08:47; Start 11/19/16 at 09:00 Sodium Chloride (Normal Saline Flush) 10 ml QSHIFT PRN IV AFTER MEDS AND BLOOD DRAWS; Start 11/18/16 at 14:15 Lidocaine HCl (Xylocaine 2% Topical 5gm Tube) 1 john 1X ONCE TP ; Start at 14:15; Stop 11/18/16 at 14:21; Status DC Lidocaine HCl (Viscous Lidocaine) 15 ml 1X ONCE MM ; Start 11/18/16 at 14:15; Stop 11/18/16 at 14:21; Status DC Benzocaine (Hurricaine One) 2 spray 1X ONCE MM ; Start 11/18/16 at 14:15; Stop 11/18/16 at 14:21; Status DC Sodium Chloride (Normal Saline Flush) 10 ml QSHIFT PRN IV AFTER MEDS AND BLOOD DRAWS; Start 11/18/16 at 14:15 Levofloxacin/ Dextrose 100 ml @ 100 mls/hr Q24H IV Last administered on 18:12; Start 11/18/16 at 15:00 Lidocaine HCl (Xylocaine 2% Topical 5gm Tube) 1 john 1X ONCE TP ; Start at 09:00; Stop 11/19/16 at 09:01; Status DC Benzocaine (Hurricaine One) 2 spray 1X ONCE MM ; Start 11/19/16 at 09:00; Stop 11/19/16 at 09:01; Status DC Ringer's Solution 1,000 ml @ 50 mls/hr Q20H IV ; Start 11/19/16 at 07:00; Stop 11/19/16 at 18:59 Info (Anti-Coagulation Monitoring By Pharmacy) 1 each PRN DAILY PRN MC SEE COMMENTS Last administered on 11/19/16t 08:39; Start 11/19/16 at 08:45 Lidocaine HCl (Viscous Lidocaine) 15 ml STK-MED ONCE .ROUTE ; Start 11/19/16 at 09:52; Stop 11/19/16 at 09:53; Status DC Lidocaine HCl (Xylocaine 2% Topical 30gm Tube) 30 john STK-MED ONCE TP ; Start at 09:52; Stop 11/19/16 at 09:53; Status DC Sodium Chloride 200 ml @ 40 mls/hr 1X ONCE IV ; Start 11/19/16 at 10:45; Stop 11/19/16 at 15:44 Active Scripts Active Reported Ascorbic Acid 500 Mg Tablet 500 Mg PO BID Vitamin D3 (Cholecalciferol (Vitamin D3)) 1,000 Unit Tablet 3,000 Unit PO DAILY Magnesium (Magnesium Oxide) 400 Mg Capsule 1 Cap PO DAILY Alive Women's Energy Mv Tablet (Multivit/Iron/FA/K/Herb No.244) 1 Each Tablet 1 Each PO Restasis (Cyclosporine) 1 Each Droperette 1 Drop EACHEYE BID Claritin (Loratadine) 10 Mg Tablet 10 Mg PO Allergies Allergies: Coded Allergies: Penicillins (Verified Allergy, Intermediate, 11/18/16) ROS General: YES: Fatigue, Malaise PSYCHOLOGICAL ROS: YES: Anxiety Eyes: Yes Decreased vision HEENT: YES: Heacaches Respiratory: YES: Cough, Orthopnea, Shortness of breath Cardiovascular: yes Edema Gastrointestinal: Yes Constipation Genitourinary: YES Other (NOCTURIA) Musculoskeletal: Yes Muscular Weakness Neurological: Yes Weakness Skin: Yes Dry Skin Physical Exam General: Alert, Oriented X3, Cooperative, No acute distress HEENT: Atraumatic, PERRLA Lungs: Other (DECREASED AT BASES) Abdomen: Normal bowel sounds, No tenderness Extremities: No clubbing, Other (1-2+ EDEMA) Neuro: Normal speech, Cranial nerves 3-12 NL Psych/Mental Status: Mental status NL, Mood NL MUSCULOSKELETAL: No deformity Vitals VITALS Vital Signs Date Time Temp Pulse Resp B/P (MAP) Pulse Ox O2 Delivery O2 Flow Rate FiO2 11/19/16 11:00 85 17 127/87 (100) 95 Nasal Cannula 2.0 11/19/16 08:00 97.8 97.8 Labs Labs Laboratory Tests Test 11/18/16 01:54 11/18/16 01:55 11/18/16 01:56 11/18/16 02:43 Bedside Troponin I 10.52 ng/ml (<0.08) White Blood Count 21.6 x10^3/uL (4.0-11.0) Red Blood Count 5.15 x10^6/uL (3.50-5.40) Hemoglobin 15.4 g/dL (12.0-15.5) Hematocrit 46.3 % (36.0-47.0) Mean Corpuscular Volume 90 fL (79-100) Mean Corpuscular Hemoglobin 30 pg (25-35) Mean Corpuscular Hemoglobin Concent 33 g/dL (31-37) Red Cell Distribution Width 13.1 % (11.5-14.5) Platelet Count 287 x10^3/uL (140-400) Neutrophils (%) (Auto) 68 % (31-73) Lymphocytes (%) (Auto) 22 % (24-48) Monocytes (%) (Auto) 10 % (0-9) Eosinophils (%) (Auto) 0 % (0-3) Basophils (%) (Auto) 1 % (0-3) Neutrophils # (Auto) 14.6 x10^3uL (1.8-7.7) Lymphocytes # (Auto) 4.7 x10^3/uL (1.0-4.8) Monocytes # (Auto) 2.1 x10^3/uL (0.0-1.1) Eosinophils # (Auto) 0.1 x10^3/uL (0.0-0.7) Basophils # (Auto) 0.2 x10^3/uL (0.0-0.2) Segmented Neutrophils % 68 % (35-66) Band Neutrophils % 1 % (0-9) Lymphocytes % 23 % (24-48) Monocytes % 7 % (0-10) Eosinophils % 1 % (0-5) Platelet Estimate Adequate (ADEQUATE) Prothrombin Time 14.2 SEC (11.7-14.0) Prothromb Time International Ratio 1.2 (0.8-1.1) Activated Partial Thromboplast Time 25 SEC (24-38) Bedside Hemoglobin 17.0 g/dL (12-15) Bedside Hematocrit 50 % (36-40) Bedside Sodium 126 mmol/L (135-145) Bedside Potassium 5.1 mmol/L (3.5-5.0) Bedside Chloride 96 mmol/L (98-110) Bedside Total CO2 17 mmol/L (23-32) Anion Gap 18 mmol/L (6-14) 16 (6-14) Bedside Blood Urea Nitrogen 18 mg/dL (8-26) Bedside Creatinine 0.5 mg/dL (0.5-1.4) Glucose Level 328 mg/dL (70-99) 288 mg/dL (70-99) Bedside Ionized Calcium (Marisela) 1.13 mmol/L (1.13-1.32) Sodium Level 128 mmol/L (136-145) Potassium Level 4.4 mmol/L (3.5-5.1) Chloride Level 93 mmol/L (98-107) Carbon Dioxide Level 19 mmol/L (21-32) Blood Urea Nitrogen 15 mg/dL (7-20) Creatinine 0.7 mg/dL (0.6-1.0) Estimated GFR (Cockcroft-Gault) 83.0 BUN/Creatinine Ratio 21 (6-20) Calcium Level 8.7 mg/dL (8.5-10.1) Magnesium Level 1.6 mg/dL (1.8-2.4) Total Bilirubin 0.9 mg/dL (0.2-1.0) Aspartate Amino Transf (AST/SGOT) 218 U/L (15-37) Alanine Aminotransferase (ALT/SGPT) 51 U/L (14-59) Alkaline Phosphatase 85 U/L (46-116) Creatine Kinase 891 U/L (26-192) Creatine Kinase MB (Mass) 153.2 ng/mL (0.0-3.6) Creatine Kinase MB Relative Index 17.2 % (0-4) Troponin I Quantitative 15.227 ng/mL (0.000-0.055) UZ-Gwc-S-Type Natriuretic Peptide 9694 pg/mL (0-124) Total Protein 6.5 g/dL (6.4-8.2) Albumin 3.4 g/dL (3.4-5.0) Albumin/Globulin Ratio 1.1 (1.0-1.7) Test 11/18/16 03:14 11/18/16 05:34 11/18/16 06:25 11/18/16 09:25 Urine Collection Type Unknown Urine Color Yellow Urine Clarity Clear Urine pH 5.5 Urine Specific [place] 1.015 Urine Protein 30 mg/dL (NEG-TRACE) Urine Glucose (UA) 500 mg/dL (NEG) Urine Ketones (Stick) Trace mg/dL (NEG) Urine Blood Trace (NEG) Urine Nitrite Negative (NEG) Urine Bilirubin Negative (NEG) Urine Urobilinogen Dipstick 0.2 mg/dL (0.2 mg/dL) Urine Leukocyte Esterase Trace (NEG) Urine RBC 6-10 /HPF (0-2) Urine WBC 11-20 /HPF (0-4) Urine Squamous Epithelial Cells Mod /LPF Urine Bacteria Mod /HPF (0-FEW) Urine Hyaline Casts Few /HPF Nasal Screen MRSA (PCR) Negative (Negative) Lactic Acid Level 2.6 mmol/L (0.4-2.0) Activated Clotting Time 173 sec (92-181) Test 11/18/16 11:45 11/18/16 15:50 11/19/16 02:18 11/19/16 05:00 Heparin Anti-Xa Act, Unfractionated 0.46 IU/mL (0.30-0.70) Erythrocyte Sedimentation Rate 2 (0-25) Troponin I Quantitative 19.647 ng/mL (0.000-0.055) Thyroid Stimulating Hormone (TSH) 0.011 uIU/mL (0.358-3.74) Glucose (Fingerstick) 150 mg/dL (70-99) Sodium Level 123 mmol/L (136-145) Potassium Level 4.3 mmol/L (3.5-5.1) Chloride Level 91 mmol/L (98-107) Carbon Dioxide Level 23 mmol/L (21-32) Anion Gap 9 (6-14) Blood Urea Nitrogen 13 mg/dL (7-20) Creatinine 0.6 mg/dL (0.6-1.0) Estimated GFR (Cockcroft-Gault) 99.1 Glucose Level 150 mg/dL (70-99) Calcium Level 8.9 mg/dL (8.5-10.1) Test 11/19/16 05:30 White Blood Count 15.3 x10^3/uL (4.0-11.0) Red Blood Count 4.69 x10^6/uL (3.50-5.40) Hemoglobin 13.8 g/dL (12.0-15.5) Hematocrit 41.6 % (36.0-47.0) Mean Corpuscular Volume 89 fL (79-100) Mean Corpuscular Hemoglobin 30 pg (25-35) Mean Corpuscular Hemoglobin Concent 33 g/dL (31-37) Red Cell Distribution Width 12.9 % (11.5-14.5) Platelet Count 227 x10^3/uL (140-400) Neutrophils (%) (Auto) 69 % (31-73) Lymphocytes (%) (Auto) 17 % (24-48) Monocytes (%) (Auto) 14 % (0-9) Eosinophils (%) (Auto) 0 % (0-3) Basophils (%) (Auto) 0 % (0-3) Neutrophils # (Auto) 10.6 x10^3uL (1.8-7.7) Lymphocytes # (Auto) 2.5 x10^3/uL (1.0-4.8) Monocytes # (Auto) 2.1 x10^3/uL (0.0-1.1) Eosinophils # (Auto) 0.0 x10^3/uL (0.0-0.7) Basophils # (Auto) 0.0 x10^3/uL (0.0-0.2) Laboratory Tests Test 11/18/16 11:45 11/18/16 15:50 11/19/16 02:18 11/19/16 05:00 Heparin Anti-Xa Act, Unfractionated 0.46 IU/mL (0.30-0.70) Erythrocyte Sedimentation Rate 2 (0-25) Troponin I Quantitative 19.647 ng/mL (0.000-0.055) Thyroid Stimulating Hormone (TSH) 0.011 uIU/mL (0.358-3.74) Glucose (Fingerstick) 150 mg/dL (70-99) Sodium Level 123 mmol/L (136-145) Potassium Level 4.3 mmol/L (3.5-5.1) Chloride Level 91 mmol/L (98-107) Carbon Dioxide Level 23 mmol/L (21-32) Anion Gap 9 (6-14) Blood Urea Nitrogen 13 mg/dL (7-20) Creatinine 0.6 mg/dL (0.6-1.0) Estimated GFR (Cockcroft-Gault) 99.1 Glucose Level 150 mg/dL (70-99) Calcium Level 8.9 mg/dL (8.5-10.1) Test 11/19/16 05:30 White Blood Count 15.3 x10^3/uL (4.0-11.0) Red Blood Count 4.69 x10^6/uL (3.50-5.40) Hemoglobin 13.8 g/dL (12.0-15.5) Hematocrit 41.6 % (36.0-47.0) Mean Corpuscular Volume 89 fL (79-100) Mean Corpuscular Hemoglobin 30 pg (25-35) Mean Corpuscular Hemoglobin Concent 33 g/dL (31-37) Red Cell Distribution Width 12.9 % (11.5-14.5) Platelet Count 227 x10^3/uL (140-400) Neutrophils (%) (Auto) 69 % (31-73) Lymphocytes (%) (Auto) 17 % (24-48) Monocytes (%) (Auto) 14 % (0-9) Eosinophils (%) (Auto) 0 % (0-3) Basophils (%) (Auto) 0 % (0-3) Neutrophils # (Auto) 10.6 x10^3uL (1.8-7.7) Lymphocytes # (Auto) 2.5 x10^3/uL (1.0-4.8) Monocytes # (Auto) 2.1 x10^3/uL (0.0-1.1) Eosinophils # (Auto) 0.0 x10^3/uL (0.0-0.7) Basophils # (Auto) 0.0 x10^3/uL (0.0-0.2) Assessment/Plan Assessment/Plan IMP NSTEMI AFIB RVR CHF-ACUTE HYPONATREMIA HX OF HYPOTHYROIDISM PLAN CHECK TSH 3 % SALINE CARDIOVERSION PENDING URINE LYTES WILL NOT BE ACCURATE SINCE SHE ALREADY RECEIVED SOME IV LASIX START ORAL LASIX MARK GOODE MD November 19, 2016 11:12
--- NOTE | 2016-11-19 11:39 | PDOC ---
PROGRESS NOTES Chief Complaint Chief Complaint Angina CHF Hyponatremia Arrhythmias Overweight Advance age Dry eyes, allergic rhinitis. 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 BACKGROUND Vitals Vitals Vital Signs Date Time Temp Pulse Resp B/P (MAP) Pulse Ox O2 Delivery O2 Flow Rate FiO2 11/19/16 11:00 85 17 127/87 (100) 95 Nasal Cannula 2.0 11/19/16 08:00 97.8 97.8 Physical Exam General: Alert, Oriented X3, Cooperative, No acute distress Heart: Other (A Fib) Lungs: Clear Abdomen: Normal bowel sounds, No tenderness Extremities: No clubbing, Other (1-2+ EDEMA) Skin: No rashes, No breakdown Labs LABS Laboratory Tests Test 11/18/16 11:45 11/18/16 15:50 11/19/16 02:18 11/19/16 05:00 Heparin Anti-Xa Act, Unfractionated 0.46 IU/mL (0.30-0.70) Erythrocyte Sedimentation Rate 2 (0-25) Troponin I Quantitative 19.647 ng/mL (0.000-0.055) Thyroid Stimulating Hormone (TSH) 0.011 uIU/mL (0.358-3.74) Glucose (Fingerstick) 150 mg/dL (70-99) Sodium Level 123 mmol/L (136-145) Potassium Level 4.3 mmol/L (3.5-5.1) Chloride Level 91 mmol/L (98-107) Carbon Dioxide Level 23 mmol/L (21-32) Anion Gap 9 (6-14) Blood Urea Nitrogen 13 mg/dL (7-20) Creatinine 0.6 mg/dL (0.6-1.0) Estimated GFR (Cockcroft-Gault) 99.1 Glucose Level 150 mg/dL (70-99) Calcium Level 8.9 mg/dL (8.5-10.1) Test 11/19/16 05:30 White Blood Count 15.3 x10^3/uL (4.0-11.0) Red Blood Count 4.69 x10^6/uL (3.50-5.40) Hemoglobin 13.8 g/dL (12.0-15.5) Hematocrit 41.6 % (36.0-47.0) Mean Corpuscular Volume 89 fL (79-100) Mean Corpuscular Hemoglobin 30 pg (25-35) Mean Corpuscular Hemoglobin Concent 33 g/dL (31-37) Red Cell Distribution Width 12.9 % (11.5-14.5) Platelet Count 227 x10^3/uL (140-400) Neutrophils (%) (Auto) 69 % (31-73) Lymphocytes (%) (Auto) 17 % (24-48) Monocytes (%) (Auto) 14 % (0-9) Eosinophils (%) (Auto) 0 % (0-3) Basophils (%) (Auto) 0 % (0-3) Neutrophils # (Auto) 10.6 x10^3uL (1.8-7.7) Lymphocytes # (Auto) 2.5 x10^3/uL (1.0-4.8) Monocytes # (Auto) 2.1 x10^3/uL (0.0-1.1) Eosinophils # (Auto) 0.0 x10^3/uL (0.0-0.7) Basophils # (Auto) 0.0 x10^3/uL (0.0-0.2) Review of Systems Review of Systems co weakness and soa Assessment and Plan Assessmemt and Plan Problems Medical Problems: (1) Acute coronary syndrome Status: Acute (2) Acute pulmonary edema Status: Acute (3) Atrial fibrillation with rapid ventricular response Status: Acute Angina CHF Hyponatremia Arrhythmias Overweight Advance age Dry eyes, allergic rhinitis. Plan Consult Neph Cordioversion Lasix ICU monitoring Recheck labs Home meds Prog guarded Total time 31 minutes Problems: Comment Review of Relevant I have reviewed the following items zak (where applicable) has been applied. Labs Laboratory Tests Test 11/18/16 01:54 11/18/16 01:55 11/18/16 01:56 11/18/16 02:43 Bedside Troponin I 10.52 ng/ml (<0.08) White Blood Count 21.6 x10^3/uL (4.0-11.0) Red Blood Count 5.15 x10^6/uL (3.50-5.40) Hemoglobin 15.4 g/dL (12.0-15.5) Hematocrit 46.3 % (36.0-47.0) Mean Corpuscular Volume 90 fL (79-100) Mean Corpuscular Hemoglobin 30 pg (25-35) Mean Corpuscular Hemoglobin Concent 33 g/dL (31-37) Red Cell Distribution Width 13.1 % (11.5-14.5) Platelet Count 287 x10^3/uL (140-400) Neutrophils (%) (Auto) 68 % (31-73) Lymphocytes (%) (Auto) 22 % (24-48) Monocytes (%) (Auto) 10 % (0-9) Eosinophils (%) (Auto) 0 % (0-3) Basophils (%) (Auto) 1 % (0-3) Neutrophils # (Auto) 14.6 x10^3uL (1.8-7.7) Lymphocytes # (Auto) 4.7 x10^3/uL (1.0-4.8) Monocytes # (Auto) 2.1 x10^3/uL (0.0-1.1) Eosinophils # (Auto) 0.1 x10^3/uL (0.0-0.7) Basophils # (Auto) 0.2 x10^3/uL (0.0-0.2) Segmented Neutrophils % 68 % (35-66) Band Neutrophils % 1 % (0-9) Lymphocytes % 23 % (24-48) Monocytes % 7 % (0-10) Eosinophils % 1 % (0-5) Platelet Estimate Adequate (ADEQUATE) Prothrombin Time 14.2 SEC (11.7-14.0) Prothromb Time International Ratio 1.2 (0.8-1.1) Activated Partial Thromboplast Time 25 SEC (24-38) Bedside Hemoglobin 17.0 g/dL (12-15) Bedside Hematocrit 50 % (36-40) Bedside Sodium 126 mmol/L (135-145) Bedside Potassium 5.1 mmol/L (3.5-5.0) Bedside Chloride 96 mmol/L (98-110) Bedside Total CO2 17 mmol/L (23-32) Anion Gap 18 mmol/L (6-14) 16 (6-14) Bedside Blood Urea Nitrogen 18 mg/dL (8-26) Bedside Creatinine 0.5 mg/dL (0.5-1.4) Glucose Level 328 mg/dL (70-99) 288 mg/dL (70-99) Bedside Ionized Calcium (Marisela) 1.13 mmol/L (1.13-1.32) Sodium Level 128 mmol/L (136-145) Potassium Level 4.4 mmol/L (3.5-5.1) Chloride Level 93 mmol/L (98-107) Carbon Dioxide Level 19 mmol/L (21-32) Blood Urea Nitrogen 15 mg/dL (7-20) Creatinine 0.7 mg/dL (0.6-1.0) Estimated GFR (Cockcroft-Gault) 83.0 BUN/Creatinine Ratio 21 (6-20) Calcium Level 8.7 mg/dL (8.5-10.1) Magnesium Level 1.6 mg/dL (1.8-2.4) Total Bilirubin 0.9 mg/dL (0.2-1.0) Aspartate Amino Transf (AST/SGOT) 218 U/L (15-37) Alanine Aminotransferase (ALT/SGPT) 51 U/L (14-59) Alkaline Phosphatase 85 U/L (46-116) Creatine Kinase 891 U/L (26-192) Creatine Kinase MB (Mass) 153.2 ng/mL (0.0-3.6) Creatine Kinase MB Relative Index 17.2 % (0-4) Troponin I Quantitative 15.227 ng/mL (0.000-0.055) CR-Vrq-A-Type Natriuretic Peptide 9694 pg/mL (0-124) Total Protein 6.5 g/dL (6.4-8.2) Albumin 3.4 g/dL (3.4-5.0) Albumin/Globulin Ratio 1.1 (1.0-1.7) Test 11/18/16 03:14 11/18/16 05:34 11/18/16 06:25 11/18/16 09:25 Urine Collection Type Unknown Urine Color Yellow Urine Clarity Clear Urine pH 5.5 Urine Specific [place] 1.015 Urine Protein 30 mg/dL (NEG-TRACE) Urine Glucose (UA) 500 mg/dL (NEG) Urine Ketones (Stick) Trace mg/dL (NEG) Urine Blood Trace (NEG) Urine Nitrite Negative (NEG) Urine Bilirubin Negative (NEG) Urine Urobilinogen Dipstick 0.2 mg/dL (0.2 mg/dL) Urine Leukocyte Esterase Trace (NEG) Urine RBC 6-10 /HPF (0-2) Urine WBC 11-20 /HPF (0-4) Urine Squamous Epithelial Cells Mod /LPF Urine Bacteria Mod /HPF (0-FEW) Urine Hyaline Casts Few /HPF Nasal Screen MRSA (PCR) Negative (Negative) Lactic Acid Level 2.6 mmol/L (0.4-2.0) Activated Clotting Time 173 sec (92-181) Test 11/18/16 11:45 11/18/16 15:50 11/19/16 02:18 11/19/16 05:00 Heparin Anti-Xa Act, Unfractionated 0.46 IU/mL (0.30-0.70) Erythrocyte Sedimentation Rate 2 (0-25) Troponin I Quantitative 19.647 ng/mL (0.000-0.055) Thyroid Stimulating Hormone (TSH) 0.011 uIU/mL (0.358-3.74) Glucose (Fingerstick) 150 mg/dL (70-99) Sodium Level 123 mmol/L (136-145) Potassium Level 4.3 mmol/L (3.5-5.1) Chloride Level 91 mmol/L (98-107) Carbon Dioxide Level 23 mmol/L (21-32) Anion Gap 9 (6-14) Blood Urea Nitrogen 13 mg/dL (7-20) Creatinine 0.6 mg/dL (0.6-1.0) Estimated GFR (Cockcroft-Gault) 99.1 Glucose Level 150 mg/dL (70-99) Calcium Level 8.9 mg/dL (8.5-10.1) Test 11/19/16 05:30 White Blood Count 15.3 x10^3/uL (4.0-11.0) Red Blood Count 4.69 x10^6/uL (3.50-5.40) Hemoglobin 13.8 g/dL (12.0-15.5) Hematocrit 41.6 % (36.0-47.0) Mean Corpuscular Volume 89 fL (79-100) Mean Corpuscular Hemoglobin 30 pg (25-35) Mean Corpuscular Hemoglobin Concent 33 g/dL (31-37) Red Cell Distribution Width 12.9 % (11.5-14.5) Platelet Count 227 x10^3/uL (140-400) Neutrophils (%) (Auto) 69 % (31-73) Lymphocytes (%) (Auto) 17 % (24-48) Monocytes (%) (Auto) 14 % (0-9) Eosinophils (%) (Auto) 0 % (0-3) Basophils (%) (Auto) 0 % (0-3) Neutrophils # (Auto) 10.6 x10^3uL (1.8-7.7) Lymphocytes # (Auto) 2.5 x10^3/uL (1.0-4.8) Monocytes # (Auto) 2.1 x10^3/uL (0.0-1.1) Eosinophils # (Auto) 0.0 x10^3/uL (0.0-0.7) Basophils # (Auto) 0.0 x10^3/uL (0.0-0.2) Laboratory Tests Test 11/18/16 11:45 11/18/16 15:50 11/19/16 02:18 11/19/16 05:00 Heparin Anti-Xa Act, Unfractionated 0.46 IU/mL (0.30-0.70) Erythrocyte Sedimentation Rate 2 (0-25) Troponin I Quantitative 19.647 ng/mL (0.000-0.055) Thyroid Stimulating Hormone (TSH) 0.011 uIU/mL (0.358-3.74) Glucose (Fingerstick) 150 mg/dL (70-99) Sodium Level 123 mmol/L (136-145) Potassium Level 4.3 mmol/L (3.5-5.1) Chloride Level 91 mmol/L (98-107) Carbon Dioxide Level 23 mmol/L (21-32) Anion Gap 9 (6-14) Blood Urea Nitrogen 13 mg/dL (7-20) Creatinine 0.6 mg/dL (0.6-1.0) Estimated GFR (Cockcroft-Gault) 99.1 Glucose Level 150 mg/dL (70-99) Calcium Level 8.9 mg/dL (8.5-10.1) Test 11/19/16 05:30 White Blood Count 15.3 x10^3/uL (4.0-11.0) Red Blood Count 4.69 x10^6/uL (3.50-5.40) Hemoglobin 13.8 g/dL (12.0-15.5) Hematocrit 41.6 % (36.0-47.0) Mean Corpuscular Volume 89 fL (79-100) Mean Corpuscular Hemoglobin 30 pg (25-35) Mean Corpuscular Hemoglobin Concent 33 g/dL (31-37) Red Cell Distribution Width 12.9 % (11.5-14.5) Platelet Count 227 x10^3/uL (140-400) Neutrophils (%) (Auto) 69 % (31-73) Lymphocytes (%) (Auto) 17 % (24-48) Monocytes (%) (Auto) 14 % (0-9) Eosinophils (%) (Auto) 0 % (0-3) Basophils (%) (Auto) 0 % (0-3) Neutrophils # (Auto) 10.6 x10^3uL (1.8-7.7) Lymphocytes # (Auto) 2.5 x10^3/uL (1.0-4.8) Monocytes # (Auto) 2.1 x10^3/uL (0.0-1.1) Eosinophils # (Auto) 0.0 x10^3/uL (0.0-0.7) Basophils # (Auto) 0.0 x10^3/uL (0.0-0.2) Medications Current Medications Adenosine (Adenocard) 6 mg STK-MED ONCE IV ; Start 11/18/16 at 01:43; Stop 11/18 at 01:44; Status DC Midazolam HCl (Versed) 2 mg STK-MED ONCE .ROUTE ; Start 11/18/16 at 01:56; Stop 11/18/16 at 01:57; Status DC Diltiazem HCl 125 mg/Dextrose 125 ml @ 0 mls/hr 1X ONCE IV Last administered on 11/18/16 02:07; Start 11/18/16 at 02:30; Stop 11/18/16 at 02:31; Status DC Diltiazem HCl (Cardizem) 10 mg 1X ONCE IVP Last administered on 11/18/16 01: 58; Start 11/18/16 at 02:30; Stop 11/18/16 at 02:31; Status DC Diltiazem HCl (Cardizem) 25 mg STK-MED ONCE .ROUTE ; Start 11/18/16 at 01:57; Stop 11/18/16 at 01:58; Status DC Heparin Sodium (Porcine) (Heparin Sodium) 4,000 unit 1X ONCE IV Last administered on 11/18/16 02:52; Start 11/18/16 at 03:00; Stop 11/18/16 at 13:13 ; Status DC Heparin Sodium/ Dextrose 500 ml @ 0 mls/hr CONT PRN IV SEE I/O RECORD Last administered on 11/18/16 07:40; Start 11/18/16 at 02:30; Stop 11/18/16 at 13:13 ; Status DC Heparin Sodium (Porcine) (Heparin Sodium) 2,400 unit PRN Q6HRS PRN IV FOR UFH LEVEL LESS THAN 0.2; Start 11/18/16 at 02:30; Stop 11/18/16 at 13:13; Status DC Furosemide (Lasix) 60 mg 1X ONCE IVP Last administered on 11/18/16 02:46; Start 11/18/16 at 03:00; Stop 11/18/16 at 03:01; Status DC Morphine Sulfate 2 mg 1X ONCE IV ; Start 11/18/16 at 04:15; Stop 11/18/16 at 04 :16; Status DC Ondansetron HCl (Zofran) 4 mg PRN Q8HRS PRN IV NAUSEA/VOMITING Last administered on 11/18/16 11:55; Start 11/18/16 at 04:00; Stop 11/19/16 at 03:59 ; Status DC Diltiazem HCl 125 mg/Dextrose 125 ml @ 0 mls/hr CONT PRN IV SEE I/O RECORD; Start 11/18/16 at 04:00; Stop 11/18/16 at 13:12; Status DC Heparin Sodium/ Dextrose 500 ml @ 0 mls/hr 1X ONCE IV ; Start 11/18/16 at 04:00 ; Stop 11/18/16 at 04:02; Status DC Lidocaine HCl 20 ml STK-MED ONCE .ROUTE ; Start 11/18/16 at 08:30; Stop at 08:31; Status DC Heparin Sodium/ Sodium Chloride 1,500 ml @ As Directed STK-MED ONCE .ROUTE ; Start 11/18/16 at 08:31; Stop 11/18/16 at 08:32; Status DC Iohexol (Omnipaque 300 Mg/ml) 100 ml STK-MED ONCE .ROUTE ; Start 11/18/16 at 08: 31; Stop 11/18/16 at 08:32; Status DC Nitroglycerin (Nitroglycerin) 200 mcg STK-MED ONCE .ROUTE ; Start 11/18/16 at 09 :02; Stop 11/18/16 at 09:03; Status DC Verapamil HCl (Verapamil) 5 mg STK-MED ONCE .ROUTE ; Start 11/18/16 at 09:02; Stop 11/18/16 at 09:03; Status DC Midazolam HCl (Versed) 2 mg STK-MED ONCE .ROUTE ; Start 11/18/16 at 09:03; Stop 11/18/16 at 09:04; Status DC Fentanyl Citrate (Fentanyl 2ml Vial) 100 mcg STK-MED ONCE .ROUTE ; Start at 09:03; Stop 11/18/16 at 09:04; Status DC Heparin Sodium (Porcine) (Heparin Sodium) 10,000 unit STK-MED ONCE .ROUTE ; Start 11/18/16 at 09:03; Stop 11/18/16 at 09:04; Status DC Dopamine HCl/ Dextrose 0 ml @ As Directed STK-MED ONCE IV ; Start 11/18/16 at 09 :26; Stop 11/18/16 at 09:27; Status DC Tirofiban/Sodium Chloride 0 ml @ As Directed STK-MED ONCE IV ; Start 11/18/16 at 09:27; Stop 11/18/16 at 09:28; Status DC Bivalirudin (Angiomax) 250 mg STK-MED ONCE IV ; Start 11/18/16 at 09:27; Stop at 09:28; Status DC Nitroglycerin (Nitroglycerin) 200 mcg 1X ONCE IART Last administered on 09:51; Start 11/18/16 at 09:45; Stop 11/18/16 at 09:46; Status DC Verapamil HCl (Verapamil) 2.5 mg 1X ONCE IART Last administered on 11/18/16 09:52; Start 11/18/16 at 09:45; Stop 11/18/16 at 09:46; Status DC Heparin Sodium (Porcine) (Heparin Sodium) 2,500 unit 1X ONCE IART Last administered on 11/18/16 09:50; Start 11/18/16 at 09:45; Stop 11/18/16 at 09:46 ; Status DC Heparin Sodium/ Sodium Chloride 1,000 unit 1X ONCE IART Last administered on 09:52; Start 11/18/16 at 09:45; Stop 11/18/16 at 09:46; Status DC Lidocaine/Sodium Bicarbonate (Buffered Lidocaine 1%) 1 ml 1X ONCE IJ Last administered on 11/18/16 09:45; Start 11/18/16 at 09:45; Stop 11/18/16 at 09:46 ; Status DC Midazolam HCl (Versed) 2 mg 1X ONCE IV Last administered on 11/18/16 09:54; Start 11/18/16 at 09:45; Stop 11/18/16 at 09:46; Status DC Fentanyl Citrate (Fentanyl 2ml Vial) 50 mcg 1X ONCE IV Last administered on 09:53; Start 11/18/16 at 09:45; Stop 11/18/16 at 09:46; Status DC Iohexol (Omnipaque 300 Mg/ml) 99 ml 1X ONCE IART Last administered on 09:51; Start 11/18/16 at 09:45; Stop 11/18/16 at 09:46; Status DC Clopidogrel Bisulfate (Plavix) 600 mg 1X ONCE PO Last administered on 09:53; Start 11/18/16 at 09:45; Stop 11/18/16 at 09:46; Status DC Info (Do NOT chart on this entry -- for MONITORING) 1 each PRN DAILY PRN MC SEE COMMENTS; Start 11/18/16 at 09:45; Stop 11/20/16 at 09:44 Clopidogrel Bisulfate (Plavix) 75 mg STK-MED ONCE .ROUTE ; Start 11/18/16 at 09: 46; Stop 11/18/16 at 09:47; Status DC Lidocaine HCl 20 ml STK-MED ONCE .ROUTE ; Start 11/18/16 at 10:35; Stop at 10:36; Status DC Heparin Sodium/ Sodium Chloride 500 ml @ As Directed STK-MED ONCE .ROUTE ; Start 11/18/16 at 10:35; Stop 11/18/16 at 10:36; Status DC Pneumococcal Polyvalent Vaccine (Do NOT chart on this placeholder) 1 each PRN 1X PRN MC SEE COMMENTS; Start 11/18/16 at 11:30; Status UNV Pneumococcal Polyvalent Vaccine (Pneumovax 23) 0.5 ml ONCE ONCE VAX IM ; Start 11/19/16 at 09:00; Stop 11/19/16 at 09:01; Status DC Metoprolol Tartrate (Lopressor) 25 mg Q6HRS PO Last administered on 11/19/16 07:17; Start 11/18/16 at 13:15 Apixaban (Eliquis) 5 mg BID PO Last administered on 11/19/16 08:47; Start at 14:00 Clopidogrel Bisulfate (Plavix) 75 mg DAILYWBKFT PO Last administered on 08:47; Start 11/18/16 at 14:00 Aspirin (Ecotrin) 81 mg DAILYWBKFT PO Last administered on 11/19/16 08:47; Start 11/19/16 at 08:00 Ascorbic Acid (Vitamin C) 500 mg BID PO Last administered on 11/19/16 08:47; Start 11/18/16 at 21:00 Vitamin D (Vitamin D3) 3,000 unit DAILY PO Last administered on 11/19/16 08:47 ; Start 11/18/16 at 15:00 Cyclosporine (Restasis) 1 drop BID OU Last administered on 11/19/16 08:47; Start 11/18/16 at 21:00 Magnesium Oxide (Magnesium Oxide) 400 mg DAILY PO Last administered on 08:47; Start 11/19/16 at 09:00 Sodium Chloride (Normal Saline Flush) 10 ml QSHIFT PRN IV AFTER MEDS AND BLOOD DRAWS; Start 11/18/16 at 14:15 Lidocaine HCl (Xylocaine 2% Topical 5gm Tube) 1 john 1X ONCE TP ; Start at 14:15; Stop 11/18/16 at 14:21; Status DC Lidocaine HCl (Viscous Lidocaine) 15 ml 1X ONCE MM ; Start 11/18/16 at 14:15; Stop 11/18/16 at 14:21; Status DC Benzocaine (Hurricaine One) 2 spray 1X ONCE MM ; Start 11/18/16 at 14:15; Stop 11/18/16 at 14:21; Status DC Sodium Chloride (Normal Saline Flush) 10 ml QSHIFT PRN IV AFTER MEDS AND BLOOD DRAWS; Start 11/18/16 at 14:15 Levofloxacin/ Dextrose 100 ml @ 100 mls/hr Q24H IV Last administered on 18:12; Start 11/18/16 at 15:00 Lidocaine HCl (Xylocaine 2% Topical 5gm Tube) 1 john 1X ONCE TP ; Start at 09:00; Stop 11/19/16 at 09:01; Status DC Benzocaine (Hurricaine One) 2 spray 1X ONCE MM ; Start 11/19/16 at 09:00; Stop 11/19/16 at 09:01; Status DC Ringer's Solution 1,000 ml @ 50 mls/hr Q20H IV ; Start 11/19/16 at 07:00; Stop 11/19/16 at 18:59 Info (Anti-Coagulation Monitoring By Pharmacy) 1 each PRN DAILY PRN MC SEE COMMENTS Last administered on 11/19/16 08:39; Start 11/19/16 at 08:45 Lidocaine HCl (Viscous Lidocaine) 15 ml STK-MED ONCE .ROUTE ; Start 11/19/16 at 09:52; Stop 11/19/16 at 09:53; Status DC Lidocaine HCl (Xylocaine 2% Topical 30gm Tube) 30 john STK-MED ONCE TP ; Start at 09:52; Stop 11/19/16 at 09:53; Status DC Sodium Chloride 200 ml @ 40 mls/hr 1X ONCE IV ; Start 11/19/16 at 10:45; Stop 11/19/16 at 15:44 Furosemide (Lasix) 40 mg DAILY PO ; Start 11/19/16 at 12:00 Active Scripts Active Reported Ascorbic Acid 500 Mg Tablet 500 Mg PO BID Vitamin D3 (Cholecalciferol (Vitamin D3)) 1,000 Unit Tablet 3,000 Unit PO DAILY Magnesium (Magnesium Oxide) 400 Mg Capsule 1 Cap PO DAILY Alive Women's Energy Mv Tablet (Multivit/Iron/FA/K/Herb No.244) 1 Each Tablet 1 Each PO Restasis (Cyclosporine) 1 Each Droperette 1 Drop EACHEYE BID Claritin (Loratadine) 10 Mg Tablet 10 Mg PO Vitals/I & O Vital Sign - Last 24 Hours 11/18/16 11/18/16 11/18/16 11/18/16 12:00 12:00 13:00 14:00 Temp 97.4 97.4 Pulse 89 88 82 Resp 25 24 20 B/P (MAP) 104/60 (75) 103/61 (75) Pulse Ox 93 94 95 O2 Delivery Nasal Cannula Room Air Room Air O2 Flow Rate 3.0 11/18/16 11/18/16 11/18/16 11/18/16 15:00 16:00 16:00 17:00 Temp 98.6 98.6 Pulse 92 92 90 Resp 19 B/P (MAP) 72/56 (61) 120/61 (80) 112/71 (85) Pulse Ox 95 93 94 O2 Delivery Room Air Nasal Cannula Room Air Room Air O2 Flow Rate 3.0 11/18/16 11/18/16 11/18/16 11/18/16 18:00 18:00 19:00 20:00 Temp 98.3 98.3 Pulse 88 95 95 95 Resp 30 30 30 B/P (MAP) 89/60 111/70 (84) 127/79 (95) 136/70 (92) Pulse Ox 96 96 96 O2 Delivery Room Air Room Air Room Air 11/18/16 11/18/16 11/18/16 11/18/16 20:00 21:00 22:00 23:00 Pulse 95 78 64 Resp 30 24 24 B/P (MAP) 120/72 (88) 104/68 (80) 87/53 (64) Pulse Ox 96 97 98 O2 Delivery Nasal Cannula Room Air Room Air Room Air O2 Flow Rate 3.0 11/18/16 11/19/16 11/19/16 11/19/16 23:59 00:00 01:00 01:19 Temp 99.0 99.0 Pulse 78 88 100 Resp 24 20 B/P (MAP) 104/79 (87) 123/85 (98) 123/85 Pulse Ox 95 98 O2 Delivery Room Air Room Air Room Air 11/19/16 11/19/16 11/19/16 11/19/16 02:00 03:00 04:00 04:00 Temp 98.6 98.6 Pulse 64 97 86 Resp 24 24 24 B/P (MAP) 143/89 (107) 141/94 (110) 120/89 (99) Pulse Ox 98 98 98 O2 Delivery Room Air Room Air Room Air Room Air 11/19/16 11/19/16 11/19/16 11/19/16 05:00 06:00 07:00 07:17 Pulse 97 91 88 84 Resp 24 16 24 B/P (MAP) 143/97 (112) 141/85 (103) 107/76 (86) 107/76 Pulse Ox 98 97 96 O2 Delivery Room Air Room Air Room Air 11/19/16 11/19/16 11/19/16 11/19/16 08:00 08:00 09:00 10:10 Temp 97.8 97.8 Pulse 94 87 85 Resp 25 18 23 B/P (MAP) 138/93 (108) 148/97 (114) 151/97 (115) Pulse Ox 93 93 99 O2 Delivery Room Air Nasal Cannula Nasal Cannula Nasal Cannula O2 Flow Rate 2.0 2.0 2.0 11/19/16 11:00 Pulse 85 Resp 17 B/P (MAP) 127/87 (100) Pulse Ox 95 O2 Delivery Nasal Cannula O2 Flow Rate 2.0 Intake and Output 11/18/16 11/18/16 11/19/16 14:59 22:59 06:59 Intake Total 0 ml 1295 ml 0 ml Output Total 550 ml 650 ml 0 ml Balance -550 ml 645 ml 0 ml SARAHI CHATMANL K III DO November 19, 2016 11:39
[2016-11-19] MEDS: FUROSEMIDE 40 MG TABLET. PO SCH (12:47)
[2016-11-19] MEDS ORDERED: PROPOFOL 20 ML IV ONE (13:49)
[2016-11-19] MEDS ORDERED: ETOMIDATE 20 MG/10 ML VIAL. IV ONE (13:52)
--- NOTE | 2016-11-19 15:23 | CARD ---
APPROVED REPORT EXAM: Two-dimensional and M-mode echocardiogram with Doppler and color Doppler. INDICATION A fib w/RVR Reason For Test : Rule out Intracardiac Thrombus. PROCEDURE After obtaining informed consent, patient underwent transesophageal echo in the PACU. Type of Sedation : Conscious Sedation Sedation was provided by anesthesiologist, see EMR for medications administered. Transesophageal probe was inserted and advanced into esophagus by Sandro Kraft MD. The NOLA was performed without complications. Throughout the procedure, the blood pressure, pulse oximetry, cardiac rhythm, and rate were monitored . The patient tolerated the procedure without adverse effects. Recovery from conscious sedation was une ventful and vital signs were stable. LEFT VENTRICLE The left ventricle is normal size. There is normal left ventricular wall thickness. Left ventricle sy stolic function is severely impaired. The Ejection Fraction is 20-25%. There is severe global hypokin esis of the left ventricle. RIGHT VENTRICLE The right ventricle is normal size. There is normal right ventricular wall thickness. The right ventr icular systolic function is normal. ATRIA The left atrium size is normal. The right atrium size is normal. The interatrial septum is intact wit h no evidence for an atrial septal defect or patent foramen ovale as noted on 2-D or Doppler imaging. There is increased echogenicity in the left atrial appendage is suggestive of a thrombus. AORTIC VALVE The aortic valve is normal in structure and function. The aortic valve is trileaflet. Doppler and Col or Flow revealed no significant aortic regurgitation. There is no significant aortic valvular stenosi s. MITRAL VALVE The mitral valve leaflets are thickened. There is no evidence of mitral valve prolapse. There is no m itral valve stenosis. Doppler and Color Flow revealed mild mitral regurgitation. TRICUSPID VALVE Doppler and Color Flow revealed mild tricuspid regurgitation. PULMONIC VALVE Doppler and Color Flow revealed no pulmonic valvular regurgitation. There is no pulmonic valvular mono nosis. GREAT VESSELS The aortic root is normal in size. The ascending aorta is normal in size. The IVC is normal in size a nd collapses >50% with inspiration. Critical Notification Critical Value: No <Conclusion> Left ventricle systolic function is severely impaired. The Ejection Fraction is 20-25%. There is severe global hypokinesis of the left ventricle. There is increased echogenicity in the left atrial appendage is suggestive of a thrombus.
[2016-11-20 04:00] VITALS: BP 112/74
[2016-11-20] MEDS: METOPROLOL TART IMMED RELEASE 25 MG TABLET. PO SCH ×3 (05:13→18:11)
[2016-11-20 07:41] LABS: CALCIUM 8.8 mg/dL (8.5-10.1); CREATININE 0.6 mg/dL (0.6-1.0); GFR 99.1; POTASSIUM 3.8 mmol/L (3.5-5.1)
[2016-11-20] MEDS: ANTI-COAG MONITOR BY PHARMACY. MC PRN (07:45)
[2016-11-20 08:00] VITALS: BP 115/73
[2016-11-20] MEDS: ASPIRIN ENTERIC COATED 81 MG TABLET.DR. PO SCH (08:49)
[2016-11-20] MEDS: CLOPIDOGREL BISULFATE 75 MG TABLET PO SCH (08:49)
[2016-11-20] MEDS: CHOLECALCIFEROL (VITAMIN D3) 1,000 UNIT TABLET PO SCH (08:49)
[2016-11-20] MEDS: APIXABAN 5 MG TABLET. PO SCH ×2 (08:49→20:54)
[2016-11-20] MEDS: MAGNESIUM OXIDE 400 MG TABLET PO SCH (08:50)
[2016-11-20] MEDS: FUROSEMIDE 40 MG TABLET. PO SCH (08:50)
[2016-11-20] MEDS: ASCORBIC ACID 500 MG TABLET PO SCH ×2 (08:50→20:54)
[2016-11-20] MEDS: cycloSPORINE 0.05% OPTH 1 DROP DROPERETTE OU SCH ×2 (08:59→21:58)
[2016-11-20 12:00] VITALS: BP 128/77
--- NOTE | 2016-11-20 12:28 | PDOC ---
PROGRESS NOTES Subjective Subjective c/o gen fatigue, dyspnea improved, denied any chest pain Objective Objective Vital Signs Date Time Temp Pulse Resp B/P (MAP) Pulse Ox O2 Delivery O2 Flow Rate FiO2 11/20/16 12:09 89 128/77 11/20/16 12:00 98.9 16 94 Room Air 98.9 11/19/16 15:00 4 Intake and Output 11/20/16 07:00 Intake Total 1050 ml Output Total 3700 ml Balance -2650 ml Intake Oral 650 ml IV Total 400 ml Output Urine Total 3700 ml Physical Exam Abdomen: Normal bowel sounds, No tenderness Heart: Other (A Fib) Extremities: No clubbing, Other (1-2+ EDEMA) General: Alert, Oriented X3, Cooperative, No acute distress HEENT: Atraumatic, PERRLA Lungs: Other (DECREASED AT BASES) MUSCULOSKELETAL: No deformity Neuro: Normal speech, Cranial nerves 3-12 NL Psych/Mental Status: Mental status NL, Mood NL Skin: No rashes, No breakdown Assessment Assessment 1. 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 Continue beta blockers and repeat echo in 2-3 months 2. Acute systolic heart failure: better compensated with diuretics 3. Atrial fibrillation with RVR: rate better controlled. [place] showed possible STEFANIE thrombus and hence not cardioverted. Continue Eliquis and plan outpatient cardioversion in 3-4 weeks Plan Plan of Care Problems Medical Problems: (1) Acute coronary syndrome Status: Acute (2) Acute pulmonary edema Status: Acute (3) Atrial fibrillation with rapid ventricular response Status: Acute Comment Review of Relevant I have reviewed the following items zak (where applicable) has been applied. Labs Laboratory Tests Test 11/20/16 07:15 Sodium Level 134 mmol/L (136-145) Potassium Level 3.8 mmol/L (3.5-5.1) Chloride Level 100 mmol/L (98-107) Carbon Dioxide Level 26 mmol/L (21-32) Anion Gap 8 (6-14) Blood Urea Nitrogen 13 mg/dL (7-20) Creatinine 0.6 mg/dL (0.6-1.0) Estimated GFR (Cockcroft-Gault) 99.1 Glucose Level 92 mg/dL (70-99) Calcium Level 8.8 mg/dL (8.5-10.1) Medications Current Medications Etomidate (Amidate) 20 mg STK-MED ONCE IV ; Start 11/19/16 at 13:52; Stop at 13:53; Status DC Lidocaine HCl (Xylocaine 2% Topical 30gm Tube) 1 john 1X ONCE TP Last administered on 11/19/16t 14:05; Start 11/19/16 at 14:05; Stop 11/19/16 at 14:18 ; Status DC Propofol 20 ml @ As Directed STK-MED ONCE IV ; Start 11/19/16 at 13:49; Stop at 13:50; Status DC Vitals/I & O Vital Sign - Last 24 Hours 11/19/16 11/19/16 11/19/16 11/19/16 12:48 13:23 14:24 14:24 Temp 98.1 98.2 98.1 98.2 Pulse 86 86 80 Resp 15 22 B/P (MAP) 125/91 96/80 119/85 Pulse Ox 100 96 O2 Delivery Nasal Cannula Nasal Cannula Mask Simple Mask O2 Flow Rate 2.0 10 10 11/19/16 11/19/16 11/19/16 11/19/16 14:39 14:47 15:00 15:00 Pulse 78 71 83 Resp 22 22 19 B/P (MAP) 123/70 133/74 128/91 (103) Pulse Ox 97 98 96 O2 Delivery Simple Mask Nasal Cannula Nasal Cannula Nasal Cannula Simple Mask O2 Flow Rate 10 10 3.0 4 11/19/16 11/19/16 11/19/16 11/19/16 15:00 16:00 18:58 19:00 Temp 97.2 97.6 98.1 97.2 97.6 98.1 Pulse 68 81 85 78 Resp 21 18 B/P (MAP) 133/74 112/82 (92) 111/52 (71) Pulse Ox 97 95 O2 Delivery Nasal Cannula Room Air Room Air O2 Flow Rate 4 11/19/16 11/19/16 11/19/16 11/20/16 19:37 23:18 23:19 04:00 Temp 98.6 97.8 98.6 97.8 Pulse 92 92 74 Resp 20 20 B/P (MAP) 130/74 (92) 130/74 112/74 (87) Pulse Ox 94 92 O2 Delivery Room Air Room Air Room Air 11/20/16 11/20/16 11/20/16 11/20/16 05:13 07:30 08:00 12:00 Temp 97.8 98.9 97.8 98.9 Pulse 74 85 89 Resp 16 16 B/P (MAP) 112/74 115/73 (87) 128/77 (94) Pulse Ox 95 94 O2 Delivery Room Air Room Air Room Air 11/20/16 12:09 Pulse 89 B/P (MAP) 128/77 Intake and Output 11/19/16 11/19/16 11/20/16 15:00 23:00 07:00 Intake Total 100 ml 300 ml 650 ml Output Total 1600 ml 550 ml 1550 ml Balance -1500 ml -250 ml -900 ml JULIETA COELHO MD November 20, 2016 12:28
--- NOTE | 2016-11-20 12:56 | PDOC ---
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[employer] Vitals Vitals Vital Signs Date Time Temp Pulse Resp B/P (MAP) Pulse Ox O2 Delivery O2 Flow Rate FiO2 11/20/16 12:09 89 128/77 11/20/16 12:00 98.9 16 94 Room Air 98.9 11/19/16 15:00 4 Physical Exam General: Alert, Oriented X3, Cooperative, No acute distress Heart: Other (A Fib) Lungs: Clear, Other (no wheezing) Abdomen: Normal bowel sounds, No tenderness Extremities: No clubbing, Other (1-2+ EDEMA) Skin: No rashes, No breakdown Labs LABS Laboratory Tests Test 11/20/16 07:15 Sodium Level 134 mmol/L (136-145) Potassium Level 3.8 mmol/L (3.5-5.1) Chloride Level 100 mmol/L (98-107) Carbon Dioxide Level 26 mmol/L (21-32) Anion Gap 8 (6-14) Blood Urea Nitrogen 13 mg/dL (7-20) Creatinine 0.6 mg/dL (0.6-1.0) Estimated GFR (Cockcroft-Gault) 99.1 Glucose Level 92 mg/dL (70-99) Calcium Level 8.8 mg/dL (8.5-10.1) Review of Systems Review of Systems Denies chest pain Denies SOA Assessment and Plan Assessmemt and Plan Problems Medical Problems: (1) Acute coronary syndrome Status: Acute (2) Acute pulmonary edema Status: Acute (3) Atrial fibrillation with rapid ventricular response Status: Acute Assessment: 1. 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 Continue beta blockers and repeat echo in 2-3 months 2. Acute systolic heart failure: better compensated with diuretics 3. Atrial fibrillation with RVR: rate better controlled. [place] showed possible STEFANIE thrombus and hence not cardioverted. Continue Eliquis and plan outpatient cardioversion in 3-4 weeks 4. UTI 5. Hyponatremia: resolved 6. Hypothyroidism 7. Overweight Plan: Appreciate subspecialty input Continue diuretics, b-blockers, Eliquis Continue abx Check labs in am PT/OT Problems: Comment Review of Relevant I have reviewed the following items zak (where applicable) has been applied. Labs Laboratory Tests Test 11/18/16 15:50 11/19/16 02:18 11/19/16 05:00 11/19/16 05:30 Erythrocyte Sedimentation Rate 2 (0-25) Troponin I Quantitative 19.647 ng/mL (0.000-0.055) Thyroid Stimulating Hormone (TSH) 0.011 uIU/mL (0.358-3.74) Glucose (Fingerstick) 150 mg/dL (70-99) Sodium Level 123 mmol/L (136-145) Potassium Level 4.3 mmol/L (3.5-5.1) Chloride Level 91 mmol/L (98-107) Carbon Dioxide Level 23 mmol/L (21-32) Anion Gap 9 (6-14) Blood Urea Nitrogen 13 mg/dL (7-20) Creatinine 0.6 mg/dL (0.6-1.0) Estimated GFR (Cockcroft-Gault) 99.1 Glucose Level 150 mg/dL (70-99) Calcium Level 8.9 mg/dL (8.5-10.1) White Blood Count 15.3 x10^3/uL (4.0-11.0) Red Blood Count 4.69 x10^6/uL (3.50-5.40) Hemoglobin 13.8 g/dL (12.0-15.5) Hematocrit 41.6 % (36.0-47.0) Mean Corpuscular Volume 89 fL (79-100) Mean Corpuscular Hemoglobin 30 pg (25-35) Mean Corpuscular Hemoglobin Concent 33 g/dL (31-37) Red Cell Distribution Width 12.9 % (11.5-14.5) Platelet Count 227 x10^3/uL (140-400) Neutrophils (%) (Auto) 69 % (31-73) Lymphocytes (%) (Auto) 17 % (24-48) Monocytes (%) (Auto) 14 % (0-9) Eosinophils (%) (Auto) 0 % (0-3) Basophils (%) (Auto) 0 % (0-3) Neutrophils # (Auto) 10.6 x10^3uL (1.8-7.7) Lymphocytes # (Auto) 2.5 x10^3/uL (1.0-4.8) Monocytes # (Auto) 2.1 x10^3/uL (0.0-1.1) Eosinophils # (Auto) 0.0 x10^3/uL (0.0-0.7) Basophils # (Auto) 0.0 x10^3/uL (0.0-0.2) Test 11/20/16 07:15 Sodium Level 134 mmol/L (136-145) Potassium Level 3.8 mmol/L (3.5-5.1) Chloride Level 100 mmol/L (98-107) Carbon Dioxide Level 26 mmol/L (21-32) Anion Gap 8 (6-14) Blood Urea Nitrogen 13 mg/dL (7-20) Creatinine 0.6 mg/dL (0.6-1.0) Estimated GFR (Cockcroft-Gault) 99.1 Glucose Level 92 mg/dL (70-99) Calcium Level 8.8 mg/dL (8.5-10.1) Laboratory Tests Test 11/20/16 07:15 Sodium Level 134 mmol/L (136-145) Potassium Level 3.8 mmol/L (3.5-5.1) Chloride Level 100 mmol/L (98-107) Carbon Dioxide Level 26 mmol/L (21-32) Anion Gap 8 (6-14) Blood Urea Nitrogen 13 mg/dL (7-20) Creatinine 0.6 mg/dL (0.6-1.0) Estimated GFR (Cockcroft-Gault) 99.1 Glucose Level 92 mg/dL (70-99) Calcium Level 8.8 mg/dL (8.5-10.1) Medications Current Medications Adenosine (Adenocard) 6 mg STK-MED ONCE IV ; Start 11/18/16 at 01:43; Stop 11/18 at 01:44; Status DC Midazolam HCl (Versed) 2 mg STK-MED ONCE .ROUTE ; Start 11/18/16 at 01:56; Stop 11/18/16 at 01:57; Status DC Diltiazem HCl 125 mg/Dextrose 125 ml @ 0 mls/hr 1X ONCE IV Last administered on 11/18/16t 02:07; Start 11/18/16 at 02:30; Stop 11/18/16 at 02:31; Status DC Diltiazem HCl (Cardizem) 10 mg 1X ONCE IVP Last administered on 11/18/16 01: 58; Start 11/18/16 at 02:30; Stop 11/18/16 at 02:31; Status DC Diltiazem HCl (Cardizem) 25 mg STK-MED ONCE .ROUTE ; Start 11/18/16 at 01:57; Stop 11/18/16 at 01:58; Status DC Heparin Sodium (Porcine) (Heparin Sodium) 4,000 unit 1X ONCE IV Last administered on 11/18/16 02:52; Start 11/18/16 at 03:00; Stop 11/18/16 at 13:13 ; Status DC Heparin Sodium/ Dextrose 500 ml @ 0 mls/hr CONT PRN IV SEE I/O RECORD Last administered on 11/18/16 07:40; Start 11/18/16 at 02:30; Stop 11/18/16 at 13:13 ; Status DC Heparin Sodium (Porcine) (Heparin Sodium) 2,400 unit PRN Q6HRS PRN IV FOR UFH LEVEL LESS THAN 0.2; Start 11/18/16 at 02:30; Stop 11/18/16 at 13:13; Status DC Furosemide (Lasix) 60 mg 1X ONCE IVP Last administered on 11/18/16 02:46; Start 11/18/16 at 03:00; Stop 11/18/16 at 03:01; Status DC Morphine Sulfate 2 mg 1X ONCE IV ; Start 11/18/16 at 04:15; Stop 11/18/16 at 04 :16; Status DC Ondansetron HCl (Zofran) 4 mg PRN Q8HRS PRN IV NAUSEA/VOMITING Last administered on 11/18/16 11:55; Start 11/18/16 at 04:00; Stop 11/19/16 at 03:59 ; Status DC Diltiazem HCl 125 mg/Dextrose 125 ml @ 0 mls/hr CONT PRN IV SEE I/O RECORD; Start 11/18/16 at 04:00; Stop 11/18/16 at 13:12; Status DC Heparin Sodium/ Dextrose 500 ml @ 0 mls/hr 1X ONCE IV ; Start 11/18/16 at 04:00 ; Stop 11/18/16 at 04:02; Status DC Lidocaine HCl 20 ml STK-MED ONCE .ROUTE ; Start 11/18/16 at 08:30; Stop at 08:31; Status DC Heparin Sodium/ Sodium Chloride 1,500 ml @ As Directed STK-MED ONCE .ROUTE ; Start 11/18/16 at 08:31; Stop 11/18/16 at 08:32; Status DC Iohexol (Omnipaque 300 Mg/ml) 100 ml STK-MED ONCE .ROUTE ; Start 11/18/16 at 08: 31; Stop 11/18/16 at 08:32; Status DC Nitroglycerin (Nitroglycerin) 200 mcg STK-MED ONCE .ROUTE ; Start 11/18/16 at 09 :02; Stop 11/18/16 at 09:03; Status DC Verapamil HCl (Verapamil) 5 mg STK-MED ONCE .ROUTE ; Start 11/18/16 at 09:02; Stop 11/18/16 at 09:03; Status DC Midazolam HCl (Versed) 2 mg STK-MED ONCE .ROUTE ; Start 11/18/16 at 09:03; Stop 11/18/16 at 09:04; Status DC Fentanyl Citrate (Fentanyl 2ml Vial) 100 mcg STK-MED ONCE .ROUTE ; Start at 09:03; Stop 11/18/16 at 09:04; Status DC Heparin Sodium (Porcine) (Heparin Sodium) 10,000 unit STK-MED ONCE .ROUTE ; Start 11/18/16 at 09:03; Stop 11/18/16 at 09:04; Status DC Dopamine HCl/ Dextrose 0 ml @ As Directed STK-MED ONCE IV ; Start 11/18/16 at 09 :26; Stop 11/18/16 at 09:27; Status DC Tirofiban/Sodium Chloride 0 ml @ As Directed STK-MED ONCE IV ; Start 11/18/16 at 09:27; Stop 11/18/16 at 09:28; Status DC Bivalirudin (Angiomax) 250 mg STK-MED ONCE IV ; Start 11/18/16 at 09:27; Stop at 09:28; Status DC Nitroglycerin (Nitroglycerin) 200 mcg 1X ONCE IART Last administered on t 09:51; Start 11/18/16 at 09:45; Stop 11/18/16 at 09:46; Status DC Verapamil HCl (Verapamil) 2.5 mg 1X ONCE IART Last administered on 11/18/16 09:52; Start 11/18/16 at 09:45; Stop 11/18/16 at 09:46; Status DC Heparin Sodium (Porcine) (Heparin Sodium) 2,500 unit 1X ONCE IART Last administered on 11/18/16 09:50; Start 11/18/16 at 09:45; Stop 11/18/16 at 09:46 ; Status DC Heparin Sodium/ Sodium Chloride 1,000 unit 1X ONCE IART Last administered on 09:52; Start 11/18/16 at 09:45; Stop 11/18/16 at 09:46; Status DC Lidocaine/Sodium Bicarbonate (Buffered Lidocaine 1%) 1 ml 1X ONCE IJ Last administered on 11/18/16 09:45; Start 11/18/16 at 09:45; Stop 11/18/16 at 09:46 ; Status DC Midazolam HCl (Versed) 2 mg 1X ONCE IV Last administered on 11/18/16 09:54; Start 11/18/16 at 09:45; Stop 11/18/16 at 09:46; Status DC Fentanyl Citrate (Fentanyl 2ml Vial) 50 mcg 1X ONCE IV Last administered on 09:53; Start 11/18/16 at 09:45; Stop 11/18/16 at 09:46; Status DC Iohexol (Omnipaque 300 Mg/ml) 99 ml 1X ONCE IART Last administered on 09:51; Start 11/18/16 at 09:45; Stop 11/18/16 at 09:46; Status DC Clopidogrel Bisulfate (Plavix) 600 mg 1X ONCE PO Last administered on 09:53; Start 11/18/16 at 09:45; Stop 11/18/16 at 09:46; Status DC Info (Do NOT chart on this entry -- for MONITORING) 1 each PRN DAILY PRN MC SEE COMMENTS; Start 11/18/16 at 09:45; Stop 11/20/16 at 09:44; Status DC Clopidogrel Bisulfate (Plavix) 75 mg STK-MED ONCE .ROUTE ; Start 11/18/16 at 09: 46; Stop 11/18/16 at 09:47; Status DC Lidocaine HCl 20 ml STK-MED ONCE .ROUTE ; Start 11/18/16 at 10:35; Stop at 10:36; Status DC Heparin Sodium/ Sodium Chloride 500 ml @ As Directed STK-MED ONCE .ROUTE ; Start 11/18/16 at 10:35; Stop 11/18/16 at 10:36; Status DC Pneumococcal Polyvalent Vaccine (Do NOT chart on this placeholder) 1 each PRN 1X PRN MC SEE COMMENTS; Start 11/18/16 at 11:30; Status UNV Pneumococcal Polyvalent Vaccine (Pneumovax 23) 0.5 ml ONCE ONCE VAX IM Last administered on 11/19/16 16:30; Start 11/19/16 at 09:00; Stop 11/19/16 at 09:01 ; Status DC Metoprolol Tartrate (Lopressor) 25 mg Q6HRS PO Last administered on 11/20/16 12:09; Start 11/18/16 at 13:15 Apixaban (Eliquis) 5 mg BID PO Last administered on 11/20/16 08:49; Start at 14:00 Clopidogrel Bisulfate (Plavix) 75 mg DAILYWBKFT PO Last administered on 08:49; Start 11/18/16 at 14:00 Aspirin (Ecotrin) 81 mg DAILYWBKFT PO Last administered on 11/20/16 08:49; Start 11/19/16 at 08:00 Ascorbic Acid (Vitamin C) 500 mg BID PO Last administered on 11/20/16 08:50; Start 11/18/16 at 21:00 Vitamin D (Vitamin D3) 3,000 unit DAILY PO Last administered on 11/20/16 08:49 ; Start 11/18/16 at 15:00 Cyclosporine (Restasis) 1 drop BID OU Last administered on 11/19/16 20:31; Start 11/18/16 at 21:00 Magnesium Oxide (Magnesium Oxide) 400 mg DAILY PO Last administered on 08:50; Start 11/19/16 at 09:00 Sodium Chloride (Normal Saline Flush) 10 ml QSHIFT PRN IV AFTER MEDS AND BLOOD DRAWS; Start 11/18/16 at 14:15 Lidocaine HCl (Xylocaine 2% Topical 5gm Tube) 1 john 1X ONCE TP ; Start at 14:15; Stop 11/18/16 at 14:21; Status DC Lidocaine HCl (Viscous Lidocaine) 15 ml 1X ONCE MM Last administered on 14:14; Start 11/18/16 at 14:15; Stop 11/18/16 at 14:21; Status DC Benzocaine (Hurricaine One) 2 spray 1X ONCE MM ; Start 11/18/16 at 14:15; Stop 11/18/16 at 14:21; Status DC Sodium Chloride (Normal Saline Flush) 10 ml QSHIFT PRN IV AFTER MEDS AND BLOOD DRAWS; Start 11/18/16 at 14:15; Status Cancel Levofloxacin/ Dextrose 100 ml @ 100 mls/hr Q24H IV Last administered on 16:27; Start 11/18/16 at 15:00 Lidocaine HCl (Xylocaine 2% Topical 5gm Tube) 1 john 1X ONCE TP ; Start at 09:00; Stop 11/19/16 at 09:01; Status DC Benzocaine (Hurricaine One) 2 spray 1X ONCE MM Last administered on 11/19/16 14:14; Start 11/19/16 at 09:00; Stop 11/19/16 at 09:01; Status DC Ringer's Solution 1,000 ml @ 50 mls/hr Q20H IV Last administered on 11/19/16 13:00; Start 11/19/16 at 07:00; Stop 11/19/16 at 18:59; Status DC Info (Anti-Coagulation Monitoring By Pharmacy) 1 each PRN DAILY PRN MC SEE COMMENTS Last administered on 11/20/16 07:45; Start 11/19/16 at 08:45 Lidocaine HCl (Viscous Lidocaine) 15 ml STK-MED ONCE .ROUTE ; Start 11/19/16 at 09:52; Stop 11/19/16 at 09:53; Status DC Lidocaine HCl (Xylocaine 2% Topical 30gm Tube) 30 john STK-MED ONCE TP ; Start at 09:52; Stop 11/19/16 at 09:53; Status DC Sodium Chloride 200 ml @ 40 mls/hr 1X ONCE IV Last administered on 11/19/16 11:41; Start 11/19/16 at 10:45; Stop 11/19/16 at 15:44; Status DC Furosemide (Lasix) 40 mg DAILY PO Last administered on 11/20/16 08:50; Start 11/19/16 at 12:00 Propofol 20 ml @ As Directed STK-MED ONCE IV ; Start 11/19/16 at 13:49; Stop at 13:50; Status DC Etomidate (Amidate) 20 mg STK-MED ONCE IV ; Start 11/19/16 at 13:52; Stop at 13:53; Status DC Lidocaine HCl (Xylocaine 2% Topical 30gm Tube) 1 john 1X ONCE TP Last administered on 11/19/16 14:05; Start 11/19/16 at 14:05; Stop 11/19/16 at 14:18 ; Status DC Active Scripts Active Reported Ascorbic Acid 500 Mg Tablet 500 Mg PO BID Vitamin D3 (Cholecalciferol (Vitamin D3)) 1,000 Unit Tablet 3,000 Unit PO DAILY Magnesium (Magnesium Oxide) 400 Mg Capsule 1 Cap PO DAILY Alive Women's Energy Mv Tablet (Multivit/Iron/FA/K/Herb No.244) 1 Each Tablet 1 Each PO Restasis (Cyclosporine) 1 Each Droperette 1 Drop EACHEYE BID Claritin (Loratadine) 10 Mg Tablet 10 Mg PO Vitals/I & O Vital Sign - Last 24 Hours 11/19/16 11/19/16 11/19/16 11/19/16 13:23 14:24 14:24 14:39 Temp 98.1 98.2 98.1 98.2 Pulse 86 80 78 Resp 15 22 22 B/P (MAP) 96/80 119/85 123/70 Pulse Ox 100 96 97 O2 Delivery Nasal Cannula Nasal Cannula Mask Simple Mask Simple Mask O2 Flow Rate 2.0 10 10 10 11/19/16 11/19/16 11/19/16 11/19/16 14:47 15:00 15:00 15:00 Temp 97.2 97.2 Pulse 71 83 68 Resp 22 19 B/P (MAP) 133/74 128/91 (103) 133/74 Pulse Ox 98 96 O2 Delivery Nasal Cannula Nasal Cannula Nasal Cannula Nasal Cannula Simple Mask O2 Flow Rate 10 3.0 4 4 11/19/16 11/19/16 11/19/16 11/19/16 16:00 18:58 19:00 19:37 Temp 97.6 98.1 97.6 98.1 Pulse 81 85 78 Resp 21 18 B/P (MAP) 112/82 (92) 111/52 (71) Pulse Ox 97 95 O2 Delivery Room Air Room Air Room Air 11/19/16 11/19/16 11/20/16 11/20/16 23:18 23:19 04:00 05:13 Temp 98.6 97.8 98.6 97.8 Pulse 92 92 74 74 Resp 20 20 B/P (MAP) 130/74 (92) 130/74 112/74 (87) 112/74 Pulse Ox 94 92 O2 Delivery Room Air Room Air 11/20/16 11/20/16 11/20/16 11/20/16 07:30 08:00 12:00 12:09 Temp 97.8 98.9 97.8 98.9 Pulse 85 89 89 Resp 16 16 B/P (MAP) 115/73 (87) 128/77 (94) 128/77 Pulse Ox 95 94 O2 Delivery Room Air Room Air Room Air Intake and Output 11/19/16 11/19/16 11/20/16 15:00 23:00 07:00 Intake Total 100 ml 300 ml 650 ml Output Total 1600 ml 550 ml 1550 ml Balance -1500 ml -250 ml -900 ml SUSHMA CHATMAN III DO November 20, 2016 12:56
--- NOTE | 2016-11-20 14:49 | PDOC ---
SUBJECTIVE ROS F/up HypoNatremia OBJECTIVE Vital Signs Vital Signs Date Time Temp Pulse Resp B/P (MAP) Pulse Ox O2 Delivery O2 Flow Rate FiO2 11/20/16 12:09 89 128/77 11/20/16 12:00 98.9 16 94 Room Air 98.9 11/19/16 15:00 4 I & 0 Intake and Output 11/20/16 07:00 Intake Total 1050 ml Output Total 3700 ml Balance -2650 ml Intake Oral 650 ml IV Total 400 ml Output Urine Total 3700 ml PHYSICAL EXAM Physical Exam General Appearance: Awake: Alert Oriented x 2-3 Neck: No JVD or JVP Chest: CTA Hermes Heart: S1 S2 Abdomen - Soft NTND Extremities - No Edema DIAGNOSIS/ASSESSMENT Assessment & Plan HypoNatremia - now resolved with Diureisis Pul edema in the setting of afib RVR - defer further diuresis to Cardiology Will be avail able prn - pl call Problems: COMMENT/RELEVANT DATA Meds Current Medications Medications (Trade) Dose Ordered Sig/Consuelo Start Time Stop Time Status Last Admin Dose Admin Adenosine (Adenocard) 6 mg STK-MED ONCE 11/18/16 01:43 11/18/16 01:44 DC Apixaban (Eliquis) 5 mg BID 11/18/16 14:00 11/20/16 08:49 5 MG Ascorbic Acid (Vitamin C) 500 mg BID 11/18/16 21:00 11/20/16 08:50 500 MG Aspirin (Ecotrin) 81 mg DAILYWBKFT 11/19/16 08:00 11/20/16 08:49 81 MG Benzocaine (Hurricaine One) 2 spray 1X ONCE 11/19/16 09:00 11/19/16 09:01 DC 11/19/16 14:14 2 SPRAY Bivalirudin (Angiomax) 250 mg STK-MED ONCE 11/18/16 09:27 11/18/16 09:28 DC Clopidogrel Bisulfate (Plavix) 75 mg DAILYWBKFT 11/18/16 14:00 11/20/16 08:49 75 MG Cyclosporine (Restasis) 1 drop BID 11/18/16 21:00 11/19/16 20:31 1 DROP Diltiazem HCl (Cardizem) 25 mg STK-MED ONCE 11/18/16 01:57 11/18/16 01:58 DC Diltiazem HCl 125 mg/Dextrose 125 ml @ 0 mls/hr CONT PRN 11/18/16 04:00 11/18/16 13:12 DC Dopamine HCl/ Dextrose 0 ml @ As Directed STK-MED ONCE 11/18/16 09:26 11/18/16 09:27 DC Etomidate (Amidate) 20 mg STK-MED ONCE 11/19/16 13:52 11/19/16 13:53 DC Fentanyl Citrate (Fentanyl 2ml Vial) 50 mcg 1X ONCE 11/18/16 09:45 11/18/16 09:46 DC 11/18/16 09:53 50 MCG Furosemide (Lasix) 40 mg DAILY 11/19/16 12:00 11/20/16 08:50 40 MG Heparin Sodium (Porcine) (Heparin Sodium) 2,500 unit 1X ONCE 11/18/16 09:45 11/18/16 09:46 DC 11/18/16 09:50 2,500 UNIT Heparin Sodium/ Dextrose 500 ml @ 0 mls/hr 1X ONCE 11/18/16 04:00 11/18/16 04:02 DC Heparin Sodium/ Sodium Chloride 500 ml @ As Directed STK-MED ONCE 11/18/16 10:35 11/18/16 10:36 DC Info (Anti-Coagulation Monitoring By Pharmacy) 1 each PRN DAILY PRN 11/19/16 08:45 11/20/16 07:45 1 EACH Info (Do NOT chart on this entry -- for MONITORING) 1 each PRN DAILY PRN 11/18/16 09:45 11/20/16 09:44 DC Iohexol (Omnipaque 300 Mg/ml) 99 ml 1X ONCE 11/18/16 09:45 11/18/16 09:46 DC 11/18/16 09:51 99 ML Levofloxacin (Levaquin) 250 mg DAILY06 11/20/16 15:00 Levofloxacin/ Dextrose 100 ml @ 100 mls/hr Q24H 11/18/16 15:00 11/20/16 13:57 DC 11/19/16 16:27 100 MLS/HR Lidocaine HCl (Viscous Lidocaine) 15 ml STK-MED ONCE 11/19/16 09:52 11/19/16 09:53 DC Lidocaine HCl (Xylocaine 2% Topical 30gm Tube) 1 john 1X ONCE 11/19/16 14:05 11/19/16 14:18 DC 11/19/16 14:05 1 JOHN Lidocaine HCl (Xylocaine 2% Topical 5gm Tube) 1 john 1X ONCE 11/19/16 09:00 11/19/16 09:01 DC Lidocaine/Sodium Bicarbonate (Buffered Lidocaine 1%) 1 ml 1X ONCE 11/18/16 09:45 11/18/16 09:46 DC 11/18/16 09:45 1 ML Magnesium Oxide (Magnesium Oxide) 400 mg DAILY 11/19/16 09:00 11/20/16 08:50 400 MG Metoprolol Tartrate (Lopressor) 25 mg Q6HRS 11/18/16 13:15 11/20/16 12:09 25 MG Midazolam HCl (Versed) 2 mg 1X ONCE 11/18/16 09:45 11/18/16 09:46 DC 11/18/16 09:54 2 MG Morphine Sulfate 2 mg 1X ONCE 11/18/16 04:15 11/18/16 04:16 DC Nitroglycerin (Nitroglycerin) 200 mcg 1X ONCE 11/18/16 09:45 11/18/16 09:46 DC 11/18/16 09:51 200 MCG Ondansetron HCl (Zofran) 4 mg PRN Q8HRS PRN 11/18/16 04:00 11/19/16 03:59 DC 11/18/16 11:55 4 MG Pneumococcal Polyvalent Vaccine (Do NOT chart on this placeholder) 1 each PRN 1X PRN 11/18/16 11:30 UNV Pneumococcal Polyvalent Vaccine (Pneumovax 23) 0.5 ml ONCE ONCE 11/19/16 09:00 11/19/16 09:01 DC 11/19/16 16:30 0.5 ML Propofol 20 ml @ As Directed STK-MED ONCE 11/19/16 13:49 11/19/16 13:50 DC Ringer's Solution 1,000 ml @ 50 mls/hr Q20H 11/19/16 07:00 11/19/16 18:59 DC 11/19/16 13:00 50 MLS/HR Sodium Chloride 200 ml @ 40 mls/hr 1X ONCE 11/19/16 10:45 11/19/16 15:44 DC 11/19/16 11:41 40 MLS/HR Sodium Chloride (Normal Saline Flush) 10 ml QSHIFT PRN 11/18/16 14:15 Cancel Tirofiban/Sodium Chloride 0 ml @ As Directed STK-MED ONCE 11/18/16 09:27 11/18/16 09:28 DC Verapamil HCl (Verapamil) 2.5 mg 1X ONCE 11/18/16 09:45 11/18/16 09:46 DC 11/18/16 09:52 2.5 MG Vitamin D (Vitamin D3) 3,000 unit DAILY 11/18/16 15:00 11/20/16 08:49 3,000 UNIT Lab Laboratory Tests Test 11/20/16 07:15 Sodium Level 134 mmol/L (136-145) Potassium Level 3.8 mmol/L (3.5-5.1) Chloride Level 100 mmol/L (98-107) Carbon Dioxide Level 26 mmol/L (21-32) Anion Gap 8 (6-14) Blood Urea Nitrogen 13 mg/dL (7-20) Creatinine 0.6 mg/dL (0.6-1.0) Estimated GFR (Cockcroft-Gault) 99.1 Glucose Level 92 mg/dL (70-99) Calcium Level 8.8 mg/dL (8.5-10.1) JIA ELLIS MD November 20, 2016 14:49
[2016-11-20 16:00] VITALS: BP 103/72
[2016-11-20 19:30] VITALS: BP 111/73
[2016-11-20 23:22] VITALS: BP 113/73
[2016-11-20] MEDS ORDERED: ACETAMINOPHEN 500 MG TABLET PO ONE (23:45)
[2016-11-21] MEDS: METOPROLOL TART IMMED RELEASE 25 MG TABLET. PO SCH ×3 (00:14→12:37)
[2016-11-21 03:00] VITALS: BP 117/69
[2016-11-21 04:09] LABS: BASO # 0.1 x10^3/uL (0.0-0.2); BASO % 1 % (0-3); EOS % 2 % (0-3); HEMATOCRIT 42.1 % (36.0-47.0); LYMPH % 30 % (24-48); MEAN CORPUSCULAR HEMOGLOBIN 30 pg (25-35); MEAN CORPUSCULAR HGB CONC 33 g/dL (31-37); MEAN CORPUSCULAR VOLUME 89 fL (79-100); MONO % 13 % (0-9); NEUT % 54 % (31-73); PLATELET COUNT 218 x10^3/uL (140-400); RED BLOOD COUNT 4.74 x10^6/uL (3.50-5.40); RED CELL DISTRIBUTION WIDTH 13.1 % (11.5-14.5); WHITE BLOOD COUNT 9.8 x10^3/uL (4.0-11.0)
[2016-11-21 04:23] LABS: CREATININE 0.7 mg/dL (0.6-1.0); POTASSIUM 3.7 mmol/L (3.5-5.1)
[2016-11-21 07:00] VITALS: BP 137/79
[2016-11-21] MEDS: CHOLECALCIFEROL (VITAMIN D3) 1,000 UNIT TABLET PO SCH (08:36)
[2016-11-21] MEDS: APIXABAN 5 MG TABLET. PO SCH (08:36)
[2016-11-21] MEDS: MAGNESIUM OXIDE 400 MG TABLET PO SCH (08:36)
[2016-11-21] MEDS: ASCORBIC ACID 500 MG TABLET PO SCH (08:36)
[2016-11-21] MEDS: CLOPIDOGREL BISULFATE 75 MG TABLET PO SCH (08:36)
[2016-11-21] MEDS: FUROSEMIDE 40 MG TABLET. PO SCH (08:36)
[2016-11-21] MEDS: ASPIRIN ENTERIC COATED 81 MG TABLET.DR. PO SCH (08:36)
[2016-11-21] MEDS: cycloSPORINE 0.05% OPTH 1 DROP DROPERETTE OU SCH (08:37)
[2016-11-21 11:00] VITALS: BP 118/81
--- NOTE | 2016-11-21 11:02 | PDOC ---
PROGRESS NOTES Subjective Subjective Feeling better today. Denied any chest pain. Objective Objective Vital Signs Date Time Temp Pulse Resp B/P (MAP) Pulse Ox O2 Delivery O2 Flow Rate FiO2 11/21/16 07:00 98.6 77 16 137/79 (98) 96 Room Air 98.6 11/20/16 19:30 95.0 Intake and Output 11/21/16 07:00 Intake Total 1640 ml Output Total 1275 ml Balance 365 ml Intake Oral 1640 ml Output Urine Total 1275 ml Physical Exam Abdomen: Normal bowel sounds, No tenderness Heart: Other (A Fib) Extremities: No clubbing, Other (1-2+ EDEMA) General: Alert, Oriented X3, Cooperative, No acute distress HEENT: Atraumatic, PERRLA Lungs: Other (DECREASED AT BASES) MUSCULOSKELETAL: No deformity Neuro: Normal speech, Cranial nerves 3-12 NL Psych/Mental Status: Mental status NL, Mood NL Skin: No rashes, No breakdown Assessment Assessment 1. 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 Continue beta blockers and repeat echo in 2-3 months 2. Acute systolic heart failure: better compensated with diuretics 3. Atrial fibrillation with RVR: rate better controlled. NOLA showed possible STEFANIE thrombus and hence not cardioverted. Continue Eliquis and plan outpatient cardioversion in 3-4 weeks Plan Plan of Care Problems Medical Problems: (1) Acute coronary syndrome Status: Acute (2) Acute pulmonary edema Status: Acute (3) Atrial fibrillation with rapid ventricular response Status: Acute Comment Review of Relevant I have reviewed the following items zak (where applicable) has been applied. Labs Laboratory Tests Test 11/21/16 03:30 11/21/16 04:00 White Blood Count 9.8 x10^3/uL (4.0-11.0) Red Blood Count 4.74 x10^6/uL (3.50-5.40) Hemoglobin 14.0 g/dL (12.0-15.5) Hematocrit 42.1 % (36.0-47.0) Mean Corpuscular Volume 89 fL (79-100) Mean Corpuscular Hemoglobin 30 pg (25-35) Mean Corpuscular Hemoglobin Concent 33 g/dL (31-37) Red Cell Distribution Width 13.1 % (11.5-14.5) Platelet Count 218 x10^3/uL (140-400) Neutrophils (%) (Auto) 54 % (31-73) Lymphocytes (%) (Auto) 30 % (24-48) Monocytes (%) (Auto) 13 % (0-9) Eosinophils (%) (Auto) 2 % (0-3) Basophils (%) (Auto) 1 % (0-3) Neutrophils # (Auto) 5.3 x10^3uL (1.8-7.7) Lymphocytes # (Auto) 3.0 x10^3/uL (1.0-4.8) Monocytes # (Auto) 1.3 x10^3/uL (0.0-1.1) Eosinophils # (Auto) 0.2 x10^3/uL (0.0-0.7) Basophils # (Auto) 0.1 x10^3/uL (0.0-0.2) Sodium Level 141 mmol/L (136-145) Potassium Level 3.7 mmol/L (3.5-5.1) Chloride Level 105 mmol/L (98-107) Carbon Dioxide Level 27 mmol/L (21-32) Anion Gap 9 (6-14) Blood Urea Nitrogen 17 mg/dL (7-20) Creatinine 0.7 mg/dL (0.6-1.0) Estimated GFR (Cockcroft-Gault) 83.0 Glucose Level 97 mg/dL (70-99) Calcium Level 9.0 mg/dL (8.5-10.1) Medications Current Medications Acetaminophen (Tylenol) 500 mg 1X ONCE PO Last administered on 11/21/16 00:13 ; Start 11/20/16 at 23:45; Stop 11/20/16 at 23:46; Status DC Levofloxacin (Levaquin) 250 mg DAILY06 PO Last administered on 11/21/16 06:15 ; Start 11/20/16 at 15:00 Vitals/I & O Vital Sign - Last 24 Hours 11/20/16 11/20/16 11/20/16 11/20/16 12:00 12:09 16:00 18:11 Temp 98.9 99.4 98.9 99.4 Pulse 89 89 87 85 Resp 16 16 B/P (MAP) 128/77 (94) 128/77 103/72 (82) 132/80 Pulse Ox 94 94 O2 Delivery Room Air Room Air 11/20/16 11/20/16 11/20/16 11/21/16 19:30 19:30 23:22 00:14 Temp 98.8 99.4 98.8 99.4 Pulse 82 88 88 B/P (MAP) 111/73 (86) 113/73 (86) 113/73 Pulse Ox 97 O2 Delivery Room Air Room Air O2 Flow Rate 4.0 95.0 11/21/16 11/21/16 11/21/16 03:00 06:16 07:00 Temp 97.8 98.6 97.8 98.6 Pulse 87 71 77 Resp 18 16 B/P (MAP) 117/69 (85) 117/69 137/79 (98) Pulse Ox 97 96 O2 Delivery Nasal Cannula Room Air Intake and Output 11/20/16 11/20/16 11/21/16 15:00 23:00 07:00 Intake Total 240 ml 1280 ml 120 ml Output Total 700 ml 575 ml Balance -460 ml 705 ml 120 ml JULIETA COELHO MD November 21, 2016 11:02
--- NOTE | 2016-11-21 13:19 | PDOC ---
PROGRESS NOTES Chief Complaint Chief Complaint NSTEMI History of Present Illness History of Present Illness Pt sitting up in bed in NAD Eating lunch Would like to go home today DW RN medications needed for d/c Vitals Vitals Vital Signs Date Time Temp Pulse Resp B/P (MAP) Pulse Ox O2 Delivery O2 Flow Rate FiO2 11/21/16 12:37 80 140/84 11/21/16 11:00 98.5 16 97 Room Air 98.5 11/20/16 19:30 95.0 Physical Exam General: Alert, Oriented X3, Cooperative, No acute distress Heart: Regular rate, No murmurs Lungs: Clear, Other (no wheezing) Abdomen: Normal bowel sounds, No tenderness Extremities: No clubbing, Other (1-2+ EDEMA - improving) Skin: No rashes, No breakdown Labs LABS Laboratory Tests Test 11/21/16 03:30 11/21/16 04:00 White Blood Count 9.8 x10^3/uL (4.0-11.0) Red Blood Count 4.74 x10^6/uL (3.50-5.40) Hemoglobin 14.0 g/dL (12.0-15.5) Hematocrit 42.1 % (36.0-47.0) Mean Corpuscular Volume 89 fL (79-100) Mean Corpuscular Hemoglobin 30 pg (25-35) Mean Corpuscular Hemoglobin Concent 33 g/dL (31-37) Red Cell Distribution Width 13.1 % (11.5-14.5) Platelet Count 218 x10^3/uL (140-400) Neutrophils (%) (Auto) 54 % (31-73) Lymphocytes (%) (Auto) 30 % (24-48) Monocytes (%) (Auto) 13 % (0-9) Eosinophils (%) (Auto) 2 % (0-3) Basophils (%) (Auto) 1 % (0-3) Neutrophils # (Auto) 5.3 x10^3uL (1.8-7.7) Lymphocytes # (Auto) 3.0 x10^3/uL (1.0-4.8) Monocytes # (Auto) 1.3 x10^3/uL (0.0-1.1) Eosinophils # (Auto) 0.2 x10^3/uL (0.0-0.7) Basophils # (Auto) 0.1 x10^3/uL (0.0-0.2) Sodium Level 141 mmol/L (136-145) Potassium Level 3.7 mmol/L (3.5-5.1) Chloride Level 105 mmol/L (98-107) Carbon Dioxide Level 27 mmol/L (21-32) Anion Gap 9 (6-14) Blood Urea Nitrogen 17 mg/dL (7-20) Creatinine 0.7 mg/dL (0.6-1.0) Estimated GFR (Cockcroft-Gault) 83.0 Glucose Level 97 mg/dL (70-99) Calcium Level 9.0 mg/dL (8.5-10.1) Review of Systems Review of Systems Denies chest pain Denies SOA Assessment and Plan Assessmemt and Plan Problems Medical Problems: (1) Acute coronary syndrome Status: Acute (2) Acute pulmonary edema Status: Acute (3) Atrial fibrillation with rapid ventricular response Status: Acute Assessment: 1. 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 Continue beta blockers and repeat echo in 2-3 months 2. Acute systolic heart failure: better compensated with diuretics 3. Atrial fibrillation with RVR: rate better controlled. NOLA showed possible STEFANIE thrombus and hence not cardioverted. Continue Eliquis and plan outpatient cardioversion in 3-4 weeks 4. UTI: on abx 5. Hyponatremia: resolved 6. Hypothyroidism 7. Overweight Plan: Appreciate subspecialty input D/C today Continue diuretics, b-blockers, Eliquis, plavix, ASA as outpatient Continue abx F/U w/ cardio o/p, pcp in 1 week Activity as tolerated Problems: Comment Review of Relevant I have reviewed the following items zak (where applicable) has been applied. Labs Laboratory Tests Test 11/20/16 07:15 11/21/16 03:30 11/21/16 04:00 Sodium Level 134 mmol/L (136-145) 141 mmol/L (136-145) Potassium Level 3.8 mmol/L (3.5-5.1) 3.7 mmol/L (3.5-5.1) Chloride Level 100 mmol/L (98-107) 105 mmol/L (98-107) Carbon Dioxide Level 26 mmol/L (21-32) 27 mmol/L (21-32) Anion Gap 8 (6-14) 9 (6-14) Blood Urea Nitrogen 13 mg/dL (7-20) 17 mg/dL (7-20) Creatinine 0.6 mg/dL (0.6-1.0) 0.7 mg/dL (0.6-1.0) Estimated GFR (Cockcroft-Gault) 99.1 83.0 Glucose Level 92 mg/dL (70-99) 97 mg/dL (70-99) Calcium Level 8.8 mg/dL (8.5-10.1) 9.0 mg/dL (8.5-10.1) White Blood Count 9.8 x10^3/uL (4.0-11.0) Red Blood Count 4.74 x10^6/uL (3.50-5.40) Hemoglobin 14.0 g/dL (12.0-15.5) Hematocrit 42.1 % (36.0-47.0) Mean Corpuscular Volume 89 fL (79-100) Mean Corpuscular Hemoglobin 30 pg (25-35) Mean Corpuscular Hemoglobin Concent 33 g/dL (31-37) Red Cell Distribution Width 13.1 % (11.5-14.5) Platelet Count 218 x10^3/uL (140-400) Neutrophils (%) (Auto) 54 % (31-73) Lymphocytes (%) (Auto) 30 % (24-48) Monocytes (%) (Auto) 13 % (0-9) Eosinophils (%) (Auto) 2 % (0-3) Basophils (%) (Auto) 1 % (0-3) Neutrophils # (Auto) 5.3 x10^3uL (1.8-7.7) Lymphocytes # (Auto) 3.0 x10^3/uL (1.0-4.8) Monocytes # (Auto) 1.3 x10^3/uL (0.0-1.1) Eosinophils # (Auto) 0.2 x10^3/uL (0.0-0.7) Basophils # (Auto) 0.1 x10^3/uL (0.0-0.2) Laboratory Tests Test 11/21/16 03:30 11/21/16 04:00 White Blood Count 9.8 x10^3/uL (4.0-11.0) Red Blood Count 4.74 x10^6/uL (3.50-5.40) Hemoglobin 14.0 g/dL (12.0-15.5) Hematocrit 42.1 % (36.0-47.0) Mean Corpuscular Volume 89 fL (79-100) Mean Corpuscular Hemoglobin 30 pg (25-35) Mean Corpuscular Hemoglobin Concent 33 g/dL (31-37) Red Cell Distribution Width 13.1 % (11.5-14.5) Platelet Count 218 x10^3/uL (140-400) Neutrophils (%) (Auto) 54 % (31-73) Lymphocytes (%) (Auto) 30 % (24-48) Monocytes (%) (Auto) 13 % (0-9) Eosinophils (%) (Auto) 2 % (0-3) Basophils (%) (Auto) 1 % (0-3) Neutrophils # (Auto) 5.3 x10^3uL (1.8-7.7) Lymphocytes # (Auto) 3.0 x10^3/uL (1.0-4.8) Monocytes # (Auto) 1.3 x10^3/uL (0.0-1.1) Eosinophils # (Auto) 0.2 x10^3/uL (0.0-0.7) Basophils # (Auto) 0.1 x10^3/uL (0.0-0.2) Sodium Level 141 mmol/L (136-145) Potassium Level 3.7 mmol/L (3.5-5.1) Chloride Level 105 mmol/L (98-107) Carbon Dioxide Level 27 mmol/L (21-32) Anion Gap 9 (6-14) Blood Urea Nitrogen 17 mg/dL (7-20) Creatinine 0.7 mg/dL (0.6-1.0) Estimated GFR (Cockcroft-Gault) 83.0 Glucose Level 97 mg/dL (70-99) Calcium Level 9.0 mg/dL (8.5-10.1) Medications Current Medications Adenosine (Adenocard) 6 mg STK-MED ONCE IV ; Start 11/18/16 at 01:43; Stop 11/18 at 01:44; Status DC Midazolam HCl (Versed) 2 mg STK-MED ONCE .ROUTE ; Start 11/18/16 at 01:56; Stop 11/18/16 at 01:57; Status DC Diltiazem HCl 125 mg/Dextrose 125 ml @ 0 mls/hr 1X ONCE IV Last administered on 11/18/16 02:07; Start 11/18/16 at 02:30; Stop 11/18/16 at 02:31; Status DC Diltiazem HCl (Cardizem) 10 mg 1X ONCE IVP Last administered on 11/18/16 01: 58; Start 11/18/16 at 02:30; Stop 11/18/16 at 02:31; Status DC Diltiazem HCl (Cardizem) 25 mg STK-MED ONCE .ROUTE ; Start 11/18/16 at 01:57; Stop 11/18/16 at 01:58; Status DC Heparin Sodium (Porcine) (Heparin Sodium) 4,000 unit 1X ONCE IV Last administered on 11/18/16 02:52; Start 11/18/16 at 03:00; Stop 11/18/16 at 13:13 ; Status DC Heparin Sodium/ Dextrose 500 ml @ 0 mls/hr CONT PRN IV SEE I/O RECORD Last administered on 11/18/16 07:40; Start 11/18/16 at 02:30; Stop 11/18/16 at 13:13 ; Status DC Heparin Sodium (Porcine) (Heparin Sodium) 2,400 unit PRN Q6HRS PRN IV FOR UFH LEVEL LESS THAN 0.2; Start 11/18/16 at 02:30; Stop 11/18/16 at 13:13; Status DC Furosemide (Lasix) 60 mg 1X ONCE IVP Last administered on 11/18/16 02:46; Start 11/18/16 at 03:00; Stop 11/18/16 at 03:01; Status DC Morphine Sulfate 2 mg 1X ONCE IV ; Start 11/18/16 at 04:15; Stop 11/18/16 at 04 :16; Status DC Ondansetron HCl (Zofran) 4 mg PRN Q8HRS PRN IV NAUSEA/VOMITING Last administered on 11/18/16 11:55; Start 11/18/16 at 04:00; Stop 11/19/16 at 03:59 ; Status DC Diltiazem HCl 125 mg/Dextrose 125 ml @ 0 mls/hr CONT PRN IV SEE I/O RECORD; Start 11/18/16 at 04:00; Stop 11/18/16 at 13:12; Status DC Heparin Sodium/ Dextrose 500 ml @ 0 mls/hr 1X ONCE IV ; Start 11/18/16 at 04:00 ; Stop 11/18/16 at 04:02; Status DC Lidocaine HCl 20 ml STK-MED ONCE .ROUTE ; Start 11/18/16 at 08:30; Stop at 08:31; Status DC Heparin Sodium/ Sodium Chloride 1,500 ml @ As Directed STK-MED ONCE .ROUTE ; Start 11/18/16 at 08:31; Stop 11/18/16 at 08:32; Status DC Iohexol (Omnipaque 300 Mg/ml) 100 ml STK-MED ONCE .ROUTE ; Start 11/18/16 at 08: 31; Stop 11/18/16 at 08:32; Status DC Nitroglycerin (Nitroglycerin) 200 mcg STK-MED ONCE .ROUTE ; Start 11/18/16 at 09 :02; Stop 11/18/16 at 09:03; Status DC Verapamil HCl (Verapamil) 5 mg STK-MED ONCE .ROUTE ; Start 11/18/16 at 09:02; Stop 11/18/16 at 09:03; Status DC Midazolam HCl (Versed) 2 mg STK-MED ONCE .ROUTE ; Start 11/18/16 at 09:03; Stop 11/18/16 at 09:04; Status DC Fentanyl Citrate (Fentanyl 2ml Vial) 100 mcg STK-MED ONCE .ROUTE ; Start at 09:03; Stop 11/18/16 at 09:04; Status DC Heparin Sodium (Porcine) (Heparin Sodium) 10,000 unit STK-MED ONCE .ROUTE ; Start 11/18/16 at 09:03; Stop 11/18/16 at 09:04; Status DC Dopamine HCl/ Dextrose 0 ml @ As Directed STK-MED ONCE IV ; Start 11/18/16 at 09 :26; Stop 11/18/16 at 09:27; Status DC Tirofiban/Sodium Chloride 0 ml @ As Directed STK-MED ONCE IV ; Start 11/18/16 at 09:27; Stop 11/18/16 at 09:28; Status DC Bivalirudin (Angiomax) 250 mg STK-MED ONCE IV ; Start 11/18/16 at 09:27; Stop at 09:28; Status DC Nitroglycerin (Nitroglycerin) 200 mcg 1X ONCE IART Last administered on 09:51; Start 11/18/16 at 09:45; Stop 11/18/16 at 09:46; Status DC Verapamil HCl (Verapamil) 2.5 mg 1X ONCE IART Last administered on 11/18/16 09:52; Start 11/18/16 at 09:45; Stop 11/18/16 at 09:46; Status DC Heparin Sodium (Porcine) (Heparin Sodium) 2,500 unit 1X ONCE IART Last administered on 11/18/16 09:50; Start 11/18/16 at 09:45; Stop 11/18/16 at 09:46 ; Status DC Heparin Sodium/ Sodium Chloride 1,000 unit 1X ONCE IART Last administered on 09:52; Start 11/18/16 at 09:45; Stop 11/18/16 at 09:46; Status DC Lidocaine/Sodium Bicarbonate (Buffered Lidocaine 1%) 1 ml 1X ONCE IJ Last administered on 11/18/16 09:45; Start 11/18/16 at 09:45; Stop 11/18/16 at 09:46 ; Status DC Midazolam HCl (Versed) 2 mg 1X ONCE IV Last administered on 11/18/16 09:54; Start 11/18/16 at 09:45; Stop 11/18/16 at 09:46; Status DC Fentanyl Citrate (Fentanyl 2ml Vial) 50 mcg 1X ONCE IV Last administered on 09:53; Start 11/18/16 at 09:45; Stop 11/18/16 at 09:46; Status DC Iohexol (Omnipaque 300 Mg/ml) 99 ml 1X ONCE IART Last administered on 09:51; Start 11/18/16 at 09:45; Stop 11/18/16 at 09:46; Status DC Clopidogrel Bisulfate (Plavix) 600 mg 1X ONCE PO Last administered on 09:53; Start 11/18/16 at 09:45; Stop 11/18/16 at 09:46; Status DC Info (Do NOT chart on this entry -- for MONITORING) 1 each PRN DAILY PRN MC SEE COMMENTS; Start 11/18/16 at 09:45; Stop 11/20/16 at 09:44; Status DC Clopidogrel Bisulfate (Plavix) 75 mg STK-MED ONCE .ROUTE ; Start 11/18/16 at 09: 46; Stop 11/18/16 at 09:47; Status DC Lidocaine HCl 20 ml STK-MED ONCE .ROUTE ; Start 11/18/16 at 10:35; Stop at 10:36; Status DC Heparin Sodium/ Sodium Chloride 500 ml @ As Directed STK-MED ONCE .ROUTE ; Start 11/18/16 at 10:35; Stop 11/18/16 at 10:36; Status DC Pneumococcal Polyvalent Vaccine (Do NOT chart on this placeholder) 1 each PRN 1X PRN MC SEE COMMENTS; Start 11/18/16 at 11:30; Status UNV Pneumococcal Polyvalent Vaccine (Pneumovax 23) 0.5 ml ONCE ONCE VAX IM Last administered on 11/19/16 16:30; Start 11/19/16 at 09:00; Stop 11/19/16 at 09:01 ; Status DC Metoprolol Tartrate (Lopressor) 25 mg Q6HRS PO Last administered on 11/21/16 12:37; Start 11/18/16 at 13:15; Stop 11/21/16 at 12:44; Status DC Apixaban (Eliquis) 5 mg BID PO Last administered on 11/21/16 08:36; Start at 14:00 Clopidogrel Bisulfate (Plavix) 75 mg DAILYWBKFT PO Last administered on 08:36; Start 11/18/16 at 14:00 Aspirin (Ecotrin) 81 mg DAILYWBKFT PO Last administered on 11/21/16 08:36; Start 11/19/16 at 08:00 Ascorbic Acid (Vitamin C) 500 mg BID PO Last administered on 11/21/16 08:36; Start 11/18/16 at 21:00 Vitamin D (Vitamin D3) 3,000 unit DAILY PO Last administered on 11/21/16 08:36 ; Start 11/18/16 at 15:00 Cyclosporine (Restasis) 1 drop BID OU Last administered on 11/21/16 08:37; Start 11/18/16 at 21:00 Magnesium Oxide (Magnesium Oxide) 400 mg DAILY PO Last administered on 08:36; Start 11/19/16 at 09:00 Sodium Chloride (Normal Saline Flush) 10 ml QSHIFT PRN IV AFTER MEDS AND BLOOD DRAWS; Start 11/18/16 at 14:15 Lidocaine HCl (Xylocaine 2% Topical 5gm Tube) 1 john 1X ONCE TP ; Start at 14:15; Stop 11/18/16 at 14:21; Status DC Lidocaine HCl (Viscous Lidocaine) 15 ml 1X ONCE MM Last administered on 14:14; Start 11/18/16 at 14:15; Stop 11/18/16 at 14:21; Status DC Benzocaine (Hurricaine One) 2 spray 1X ONCE MM ; Start 11/18/16 at 14:15; Stop 11/18/16 at 14:21; Status DC Sodium Chloride (Normal Saline Flush) 10 ml QSHIFT PRN IV AFTER MEDS AND BLOOD DRAWS; Start 11/18/16 at 14:15; Status Cancel Levofloxacin/ Dextrose 100 ml @ 100 mls/hr Q24H IV Last administered on 16:27; Start 11/18/16 at 15:00; Stop 11/20/16 at 13:57; Status DC Lidocaine HCl (Xylocaine 2% Topical 5gm Tube) 1 john 1X ONCE TP ; Start at 09:00; Stop 11/19/16 at 09:01; Status DC Benzocaine (Hurricaine One) 2 spray 1X ONCE MM Last administered on 11/19/16 14:14; Start 11/19/16 at 09:00; Stop 11/19/16 at 09:01; Status DC Ringer's Solution 1,000 ml @ 50 mls/hr Q20H IV Last administered on 11/19/16 13:00; Start 11/19/16 at 07:00; Stop 11/19/16 at 18:59; Status DC Info (Anti-Coagulation Monitoring By Pharmacy) 1 each PRN DAILY PRN MC SEE COMMENTS Last administered on 11/20/16 07:45; Start 11/19/16 at 08:45 Lidocaine HCl (Viscous Lidocaine) 15 ml STK-MED ONCE .ROUTE ; Start 11/19/16 at 09:52; Stop 11/19/16 at 09:53; Status DC Lidocaine HCl (Xylocaine 2% Topical 30gm Tube) 30 john STK-MED ONCE TP ; Start at 09:52; Stop 11/19/16 at 09:53; Status DC Sodium Chloride 200 ml @ 40 mls/hr 1X ONCE IV Last administered on 11/19/16 11:41; Start 11/19/16 at 10:45; Stop 11/19/16 at 15:44; Status DC Furosemide (Lasix) 40 mg DAILY PO Last administered on 11/21/16 08:36; Start 11/19/16 at 12:00 Propofol 20 ml @ As Directed STK-MED ONCE IV ; Start 11/19/16 at 13:49; Stop at 13:50; Status DC Etomidate (Amidate) 20 mg STK-MED ONCE IV ; Start 11/19/16 at 13:52; Stop at 13:53; Status DC Lidocaine HCl (Xylocaine 2% Topical 30gm Tube) 1 john 1X ONCE TP Last administered on 11/19/16 14:05; Start 11/19/16 at 14:05; Stop 11/19/16 at 14:18 ; Status DC Levofloxacin (Levaquin) 250 mg DAILY06 PO Last administered on 11/21/16 06:15 ; Start 11/20/16 at 15:00 Acetaminophen (Tylenol) 500 mg 1X ONCE PO Last administered on 11/21/16 00:13 ; Start 11/20/16 at 23:45; Stop 11/20/16 at 23:46; Status DC Metoprolol Tartrate (Lopressor) 25 mg BID PO ; Start 11/21/16 at 21:00 Active Scripts Active Reported Ascorbic Acid 500 Mg Tablet 500 Mg PO BID Vitamin D3 (Cholecalciferol (Vitamin D3)) 1,000 Unit Tablet 3,000 Unit PO DAILY Magnesium (Magnesium Oxide) 400 Mg Capsule 1 Cap PO DAILY Al[employer] Mv Tablet (Multivit/Iron/FA/K/Herb No.244) 1 Each Tablet 1 Each PO Restasis (Cyclosporine) 1 Each Droperette 1 Drop EACHEYE BID Claritin (Loratadine) 10 Mg Tablet 10 Mg PO Vitals/I & O Vital Sign - Last 24 Hours 11/20/16 11/20/16 11/20/16 11/20/16 16:00 18:11 19:30 19:30 Temp 99.4 98.8 99.4 98.8 Pulse 87 85 82 Resp 16 B/P (MAP) 103/72 (82) 132/80 111/73 (86) Pulse Ox 94 O2 Delivery Room Air Room Air Room Air O2 Flow Rate 4.0 95.0 11/20/16 11/21/16 11/21/16 11/21/16 23:22 00:14 03:00 06:16 Temp 99.4 97.8 99.4 97.8 Pulse 88 88 87 71 Resp 18 B/P (MAP) 113/73 (86) 113/73 117/69 (85) 117/69 Pulse Ox 97 97 O2 Delivery Nasal Cannula 11/21/16 11/21/16 11/21/16 07:00 11:00 12:37 Temp 98.6 98.5 98.6 98.5 Pulse 77 71 80 Resp 16 16 B/P (MAP) 137/79 (98) 118/81 (93) 140/84 Pulse Ox 96 97 O2 Delivery Room Air Room Air Intake and Output 11/20/16 11/20/16 11/21/16 15:00 23:00 07:00 Intake Total 240 ml 1280 ml 120 ml Output Total 700 ml 575 ml Balance -460 ml 705 ml 120 ml SUSHMA CHATMAN K III DO November 21, 2016 13:19
[2016-11-21 15:00] VITALS: BP 133/82
[2016-11-21] MEDS ORDERED: ASPI-482 PO (15:27)
[2016-11-21] MEDS ORDERED: APIX5TAB PO (15:27)
[2016-11-21] MEDS ORDERED: CLOP75TA PO (15:28)
[2016-11-21] MEDS ORDERED: METO25TA4 PO (15:28)
[2016-11-21] MEDS ORDERED: LEVO500T38 PO (15:29)
[2016-11-21] MEDS ORDERED: FURO-68 PO (15:30)
[2016-11-21] MEDS ORDERED: POTA20TA82 PO (15:31)
[2016-11-21] MEDS ORDERED: METOPROLOL TART IMMED RELEASE 25 MG TABLET. PO SCH (21:00)
== END 2016-11-21 17:15 | disposition home or self-care (01) | DRG 280 ==
LOC: ER 01:39 → 1 WEST ICU 02:21 → 2 NORTH 11-19 18:47
PROVIDERS: ADMIT Internal Medicine; ATTEND Internal Medicine
PROC: 4A023N7 Measurement of Cardiac Sampling and Pressure, Left Heart, Percutaneous Approach (ICD-10-PCS; principal; 2016-11-18)
PROC: B2111ZZ Fluoroscopy of Multiple Coronary Arteries using Low Osmolar Contrast (ICD-10-PCS; 2016-11-18)
PROC: B2151ZZ Fluoroscopy of Left Heart using Low Osmolar Contrast (ICD-10-PCS; 2016-11-18)
DX: I21.4 Non-ST elevation (NSTEMI) myocardial infarction (principal); I50.21 Acute systolic (congestive) heart failure; E87.1 Hypo-osmolality and hyponatremia; I51.81 Takotsubo syndrome; N39.0 Urinary tract infection, site not specified; J81.1 Chronic pulmonary edema; I11.0 Hypertensive heart disease with heart failure; Z60.2 Problems related to living alone; E03.9 Hypothyroidism, unspecified; I20.9 Angina pectoris, unspecified; E66.3 Overweight; I48.91 Unspecified atrial fibrillation; J30.9 Allergic rhinitis, unspecified; Z82.49 Family history of ischemic heart disease and other diseases of the circulatory system; Z87.891 Personal history of nicotine dependence; Z88.0 Allergy status to penicillin; Z68.36 Body mass index [BMI] 36.0-36.9, adult
CPT/HCPCS: 36415; 71010; 80047; 80048; 80053; 81001; 82553; 82947; 83605; 83735; 83880; 84443; 84484; 85007; 85027; 85347; 85520; 85610; 85651; 85730; 87641; 90732; 92960; 93005; 93306; 93312; 93325; 93458; 96365; 96366; 96374; 96375; C1769; C1892; J1940; J1956; J2250; J2405; J2704; J3010; J3490; J7120; Q9967; 97116; 97530; 99291-25

== ENCOUNTER → 2016-12-30 | Day surgery (SDC) | payer MEDICARE ==
[~2016-12-30] MED LIST: APIX5TAB PO; ASCO500T3 PO; ASPI-482 PO; ATOR20TA58 PO; BENZOCAINE ONE 20% MUCOSAL SPRAY.; CHOL10003 PO; CLOP75TA PO; CYCL1DRO EACHEYE; FURO-68 PO; HYDROmorphone 2 MG/ML VIAL IV PRN; IV RINGERS,LACTATED 1000ML 1,000 ML IV SCH; LEVO500T59 PO; LIDOCAINE 1% 1 ML SYRINGE. ID PRN; LIDOCAINE 2% TOPICAL JELLY 30GM TUBE. TP ONE; LIDOCAINE 2% VISCOUS 15 ML SOLUTION. ONE; LORA10TA68 PO; MAGN400C PO; METO25TA4 PO; METO25TA9 PO; MORPHINE SULFATE 2 MG/ML DISP.SYRIN. IV PRN; MULT-667 PO; ONDANSETRON PF 4 MG/2 ML VIAL. IV PRN; POTA20TA82 PO; PROCHLORPERAZINE 10 MG/2 ML VIAL. IV PRN; PROPOFOL 20 ML IV ONE; fentaNYL PF VIAL 100 MCG/2 ML VIAL IV PRN
--- NOTE | 2016-12-30 07:20 | EKG ---
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1945 Requested By: JOHNATHON RYAN Order Number: [id number] Reading MD: Measurements Intervals Murray Rate: 72 P: NV: QRS: -31 QRSD: 84 T: -133 QT: 404 QTc: 444 Interpretive Statements IRREGULAR RHYTHM, NO P-WAVE FOUND ABNORMAL LEFT AXIS DEVIATION LEFT ANTERIOR FASCICULAR BLOCK CONSIDER LEFT VENTRICULAR HYPERTROPHY QRS(T) CONTOUR ABNORMALITY CONSISTENT WITH ANTEROSEPTAL INFARCT AGE UNDETERMINED T ABNORMALITY IN ANTERIOR LEADS LATERAL LEADS INFEROLATERAL LEADS ABNORMAL ECG RI6.01 Compared to ECG 11/18/2016 02:26:58 Left anterior fascicular block now present T-wave abnormality now present Myocardial infarct finding still present
[2016-12-30 07:24] LABS: CALCIUM 9.4 mg/dL (8.5-10.1); CREATININE 0.8 mg/dL (0.6-1.0); GFR 70.9; MAGNESIUM 2.3 mg/dL (1.8-2.4); POTASSIUM 4.2 mmol/L (3.5-5.1)
[2016-12-30 09:06] VITALS: BP 101/65
--- NOTE | 2016-12-30 11:50 | CARD ---
APPROVED REPORT EXAM: Transesophageal echocardiogram with color flow Doppler and Synchronized Cardioversion. INDICATION Atrial Fibrillation Reason For Test : Rule out Intracardiac Thrombus. PROCEDURE After obtaining informed consent, patient underwent transesophageal echo in the PACU. Type of Sedation : General Anesthesia Sedation was provided by anesthesiologist, see EMR for medications administered. Transesophageal probe was inserted and advanced into esophagus by Sandro Kraft MD. The NOLA was performed without complications. Synchronized Cardioversion attempted: Successful Synchronized Cardioversion acheived with 200 Joules after 1 attempt(s). Rhythm following Synchronized Cardioversion: Normal Sinus Rhythm Throughout the procedure, the blood pressure, pulse oximetry, cardiac rhythm, and rate were monitored . The patient tolerated the procedure without adverse effects. Recovery from conscious sedation was une ventful and vital signs were stable. LEFT VENTRICLE The left ventricle is normal size. There is normal left ventricular wall thickness. Left ventricle sy stolic function is moderately impaired. The Ejection Fraction is 35-40%. There is global hypokinesis of the left ventricle. RIGHT VENTRICLE The right ventricle is normal size. The right ventricular systolic function is normal. ATRIA The left atrium size is normal. The right atrium size is normal. The interatrial septum is intact wit h no evidence for an atrial septal defect or patent foramen ovale as noted on 2-D or Doppler imaging. There is no thrombus noted in the left atrial appendage. AORTIC VALVE The aortic valve is normal in structure and function. The aortic valve is trileaflet. Doppler and Col or Flow revealed no significant aortic regurgitation. There is no significant aortic valvular stenosi s. MITRAL VALVE The mitral valve is normal in structure and function. There is no evidence of mitral valve prolapse. Doppler and Color Flow revealed trace mitral regurgitation. TRICUSPID VALVE The tricuspid valve is normal in structure and function. Doppler and Color Flow revealed no tricuspid valve regurgitation noted. There is no tricuspid valve stenosis. PULMONIC VALVE The pulmonary valve is normal in structure and function. Doppler and Color Flow revealed no pulmonic valvular regurgitation. There is no pulmonic valvular stenosis. GREAT VESSELS The aortic root is normal in size. Normal pulmonary venous flow (Doppler). The IVC was visualized and appears normal in size. The SVC was visualized and appears normal in size. PERICARDIAL EFFUSION There is no pleural effusion. Critical Notification Critical Value: No <Conclusion> Left ventricle systolic function is moderately impaired. The Ejection Fraction is 35-40%. There is global hypokinesis of the left ventricle. There is no thrombus noted in the left atrial appendage. Successful cardioversion to SR at 200 J.
== END ==
LOC: SURG 06:25
PROVIDERS: ATTEND Internal Medicine Cardiovascular Disease
DX: I48.91 Unspecified atrial fibrillation (principal); I42.9 Cardiomyopathy, unspecified; J45.909 Unspecified asthma, uncomplicated; E66.9 Obesity, unspecified; F17.200 Nicotine dependence, unspecified, uncomplicated; Z87.440 Personal history of urinary (tract) infections; Z82.3 Family history of stroke; Z80.3 Family history of malignant neoplasm of breast
CPT/HCPCS: 36415; 76376; 80048; 83735; 92960; 93005; 93312; 93325; J2704

== ENCOUNTER → 2017-12-15 | Outpatient (CLI) | payer MEDICARE ==
[2017-12-15 07:55] LABS: ADD MAN DIFF? NO
[2017-12-15 08:14] LABS: BASO # 0.1 x10^3/uL (0.0-0.2); BASO % 1 % (0-3); EOS # 0.4 x10^3/uL (0.0-0.7); EOS % 4 % (0-3); HEMATOCRIT 39.8 % (36.0-47.0); HEMOGLOBIN 13.5 g/dL (12.0-15.5); LYMPH # 2.5 x10^3/uL (1.0-4.8); LYMPH % 27 % (24-48); MEAN CORPUSCULAR HEMOGLOBIN 30 pg (25-35); MEAN CORPUSCULAR HGB CONC 34 g/dL (31-37); MEAN CORPUSCULAR VOLUME 90 fL (79-100); MONO # 1.1 x10^3/uL (0.0-1.1); MONO % 12 % (0-9); NEUT # 5.3 x10^3uL (1.8-7.7); NEUT % 57 % (31-73); PLATELET COUNT 221 x10^3/uL (140-400); RED BLOOD COUNT 4.42 x10^6/uL (3.50-5.40); RED CELL DISTRIBUTION WIDTH 13.1 % (11.5-14.5); WHITE BLOOD COUNT 9.3 x10^3/uL (4.0-11.0)
[2017-12-15 09:09] LABS: ALBUMIN 3.6 g/dL (3.4-5.0); ALBUMIN/GLOBULIN RATIO 1.2 (1.0-1.7); ALK PHOS 104 U/L (46-116); ALT (SGPT) 26 U/L (14-59); ANION GAP 5 (6-14); AST (SGOT) 18 U/L (15-37); BLOOD UREA NITROGEN 13 mg/dL (7-20); BUN/CREATININE RATIO 16 (6-20); CALCIUM 8.9 mg/dL (8.5-10.1); CARBON DIOXIDE 29 mmol/L (21-32); CHLORIDE 103 mmol/L (98-107); CHOLESTEROL 150 mg/dL (0-200); CREATININE 0.8 mg/dL (0.6-1.0); GFR 70.7; GLUCOSE 115 mg/dL (70-99); HDLC 52 mg/dL (40-60); LDLC 75 mg/dL (0-100); NON-HDL CHOLESTEROL 98 mg/dL (0-129); POTASSIUM 4.1 mmol/L (3.5-5.1); SODIUM 137 mmol/L (136-145); TOTAL BILIRUBIN 0.5 mg/dL (0.2-1.0); TOTAL PROTEIN 6.6 g/dL (6.4-8.2); TRIGLYCERIDES 114 mg/dL (0-150); VLDLC 23 mg/dL (0-40)
[2017-12-15 09:11] LABS: CHOLESTEROL/HDL RATIO 2.9
== END | disposition home or self-care (01) ==
LOC: LAB 07:41
DX: I48.91 Unspecified atrial fibrillation (principal); I11.0 Hypertensive heart disease with heart failure; I50.21 Acute systolic (congestive) heart failure; E03.9 Hypothyroidism, unspecified
CPT/HCPCS: 36415; 80053; 80061; 85025

== ENCOUNTER → 2018-07-11 | Outpatient (CLI) | payer MEDICARE ==
[2016-12-30 09:06] VITALS: BP 101/65
[~2018-07-11] MED LIST changes: -BENZOCAINE ONE 20% MUCOSAL SPRAY.; -HYDROmorphone 2 MG/ML VIAL IV PRN; -IV RINGERS,LACTATED 1000ML 1,000 ML IV SCH; -LIDOCAINE 1% 1 ML SYRINGE. ID PRN; -LIDOCAINE 2% TOPICAL JELLY 30GM TUBE. TP ONE; -LIDOCAINE 2% VISCOUS 15 ML SOLUTION. ONE; +METO-239 PO; -METO25TA9 PO; -MORPHINE SULFATE 2 MG/ML DISP.SYRIN. IV PRN; -ONDANSETRON PF 4 MG/2 ML VIAL. IV PRN; -PROCHLORPERAZINE 10 MG/2 ML VIAL. IV PRN; -PROPOFOL 20 ML IV ONE; -fentaNYL PF VIAL 100 MCG/2 ML VIAL IV PRN
--- NOTE | 2018-07-11 14:04 | KCIC ---
Bone densitometry 07/11/2018 1:30 PM Indication: Adult fracture. Thyroid medication use. Loss of height. Comparison Study: None available. Discussion: Bone Densitometry was performed with dual photon absorption of the lumbar spine and proximal left femur.. Lumbar Spine: Bone average density is 1.078g/cm2 for L1-L4. T-Score is 0.3. Proximal left femur: Bone average density is 0.922g/cm2. T-Score is -0.2. IMPRESSION: Normal bone mineral density Note: Definitions established by the World Health Organization: Normal: T-score is -1.0 or above. Osteopenia: T-score is between -1.0 and -2.5. Osteoporosis: T-score is -2.5 or below. Electronically signed by: Luis M Hills MD (07/11/2018 2:00 PM) [id number]
--- NOTE | 2018-07-17 15:12 | KCIC ---
BILATERAL SCREENING MAMMOGRAM, 3-D History: Routine screening. Comparison: None available. Interpreted as new baseline. Technique: MLO and CC digital tomosynthesis (3D) images obtained. Radiologist reviewed these images on dedicated workstation. Findings: Breast Tissue Density B : There are scattered areas of fibroglandular density. A few scattered benign calcifications are seen. Cannot exclude subtle architectural distortion on CC slice 33 in the inner left breast at mid depth. There is also a tiny nodular asymmetry in the inner left breast at mid depth about 2.9 cm anterior to the other finding. There are no suspicious microcalcifications or mass is. There is bilateral subareolar ductal ectasia. There is a well-circumscribed benign-appearing mass measuring 11 mm in the upper outer right breast at anterior depth. IMPRESSION: Tiny nodular asymmetry in the inner left breast. Questionable architectural distortion more posteriorly in the inner left breast. Recommend further evaluation with left true lateral and spot compression CC tomosynthesis digital views. If finding persists ultrasound is suggested. BI-RADS Category 0: Incomplete: Need additional imaging evaluation. The images were reviewed with computer-aided detection. Patient information is entered into reminder system with a target due date for the next screening mammogram. Mammography is the most sensitive method for finding small breast cancers, but it does not detect them all and is not a substitute for careful clinical examination. A negative mammogram does not negate a clinically suspicious finding and should not result in delay in biopsying a clinically suspicious abnormality. "Our facility is accredited by the [employer] Mammography Program." Electronically signed by: Leroy Jaimes MD (07/12/2018 6:04 PM) [id number]
== END | disposition home or self-care (01) ==
LOC: KCIC MAMMO 12:49
PROVIDERS: ATTEND Family Medicine
DX: Z12.31 Encounter for screening mammogram for malignant neoplasm of breast (principal); N60.42 Mammary duct ectasia of left breast; N60.41 Mammary duct ectasia of right breast; R29.890 Loss of height; Z78.0 Asymptomatic menopausal state
CPT/HCPCS: 77063; 77067; 77080

== ENCOUNTER → 2018-07-25 | Outpatient (CLI) | payer MEDICARE ==
[2016-12-30 09:06] VITALS: BP 101/65
--- NOTE | 2018-07-25 11:17 | KCIC ---
Left breast diagnostic digital mammograms: Reason for examination: Nodular densities on screening mammogram. Additional true lateral and coned compression CC views were obtained of the left breast. Small nodular density with architectural distortion persists at the 8:30 to 9:00 B position 8 cm from the nipple and measures approximately 7.6 mm in greatest dimension. There are also couple additional smaller nodules 9.5 cm deep to the nipple measuring 4 mm in size and 8 cm deep to the nipple measuring 5.6 mm in greatest dimension. There is also a nodule which is fairly well-circumscribed measuring 1.3 cm in size located at approximately the 3:00 position 9.5 cm from the nipple. Further evaluation with ultrasound is recommended. IMPRESSION: Several small nodular densities in the left breast measuring up to 1.3 cm in size. The area of possible architectural distortion appears to be located at the 8:30 to 9:00 position and measures 7.6 mm in greatest dimension. Recommend further evaluation with ultrasound. The patient refused ultrasound examination. BI-RADS Category 3: Probably Benign. "Our facility is accredited by the [employer] Mammography Program." This patient's information has been entered into a reminder system for the patient to be notified with the results of her examination and a target date for the next mammogram. Electronically signed by: Ysabel Dill MD (07/25/2018 11:12 AM) [id number]
== END | disposition home or self-care (01) ==
LOC: KCIC MAMMO 10:13
PROVIDERS: ATTEND Family Medicine
DX: R92.8 Other abnormal and inconclusive findings on diagnostic imaging of breast (principal)
CPT/HCPCS: 77065

== ENCOUNTER → 2018-12-11 | Outpatient (CLI) | payer MEDICARE ==
[2016-12-30 09:06] VITALS: BP 101/65
[2018-12-11 15:39] LABS: BASO # 0.1 x10^3/uL (0.0-0.2); BASO % 1 % (0-3); EOS # 0.4 x10^3/uL (0.0-0.7); EOS % 5 % (0-3); HEMATOCRIT 41.6 % (36.0-47.0); HEMOGLOBIN 13.9 g/dL (12.0-15.5); LYMPH # 2.9 x10^3/uL (1.0-4.8); LYMPH % 35 % (24-48); MEAN CORPUSCULAR HEMOGLOBIN 30 pg (25-35); MEAN CORPUSCULAR HGB CONC 33 g/dL (31-37); MEAN CORPUSCULAR VOLUME 91 fL (79-100); MONO # 1.1 x10^3/uL (0.0-1.1); MONO % 13 % (0-9); NEUT # 3.6 x10^3uL (1.8-7.7); NEUT % 45 % (31-73); PLATELET COUNT 251 x10^3/uL (140-400); RED BLOOD COUNT 4.58 x10^6/uL (3.50-5.40); RED CELL DISTRIBUTION WIDTH 13.3 % (11.5-14.5); WHITE BLOOD COUNT 8.1 x10^3/uL (4.0-11.0)
[2018-12-11 16:07] LABS: ALBUMIN 3.7 g/dL (3.4-5.0); ALBUMIN/GLOBULIN RATIO 1.1 (1.0-1.7); CALCIUM 9.6 mg/dL (8.5-10.1); CREATININE 0.9 mg/dL (0.6-1.0); GFR 61.7; POTASSIUM 4.6 mmol/L (3.5-5.1); TOTAL BILIRUBIN 0.4 mg/dL (0.2-1.0); TOTAL PROTEIN 7.1 g/dL (6.4-8.2)
== END | disposition home or self-care (01) ==
LOC: LAB 15:05
PROVIDERS: ATTEND Internal Medicine Cardiovascular Disease
DX: I51.81 Takotsubo syndrome (principal)
CPT/HCPCS: 36415; 80053; 83880; 85025

== ENCOUNTER → 2019-01-18 | Outpatient (CLI) | payer MEDICARE ==
[2016-12-30 09:06] VITALS: BP 101/65
--- NOTE | 2019-01-18 14:19 | CARD ---
MR#: [id number] Date of Study: 01/18/2019 Ordering Physician: JOHNATHON RYAN, Referring Physician: JOHNATHON RYAN, Tech: Ivana Davis [facility] APPROVED REPORT EXAM: Two-dimensional and M-mode echocardiogram with Doppler and color Doppler. Other Information Quality : AverageHR: 70bpm Rhythm : NSR INDICATION Cardiomyopathy 2D DIMENSIONS RVDd3.0 (2.9-3.5cm)Left Atrium(2D)4.2 (1.6-4.0cm) IVSd1.0 (0.7-1.1cm)Aortic Root(2D)3.3 (2.0-3.7cm) LVDd5.0 (3.9-5.9cm)LVOT Diameter2.2 (1.8-2.4cm) PWd1.0 (0.7-1.1cm)LVDs3.2 (2.5-4.0cm) FS (%) 34.7 %SV74.4 ml LVEF(%)63.7 (>50%) M-Mode DIMENSIONS Left Atrium(MM)3.92 (2.5-4.0cm)Aortic Root2.19 (2.2-3.7cm) Aortic Valve AoV Peak Abram.186.0cm/sAoV VTI36.2cm AO Peak GR.13.8mmHgLVOT Peak Abram.92.5cm/s AO Mean GR.7mmHgAVA (VMAX)1.82cm2 SHEFALI (VTI)1.90cm2 Mitral Valve MV E Plhxlkrz627.1cm/sMV DECEL OBCK327rl MV A Zakvpbuy077.4cm/sE/A Ratio1.1 Pulmonary Valve PV Peak Hhhvqsum127.3cm/s Tricuspid Valve TR P. Njulvxlq045dq/sRAP ZGCBAHWS1ysOt TR Peak Gr.43snFvCHEI38uxLp LEFT VENTRICLE The left ventricle is normal size. There is normal left ventricular wall thickness. The left ventricu lar systolic function is normal and the ejection fraction is within normal range. The Ejection Fracti on is 60-65%. The mid to distal anterolateral wall mild hypokinesis. Transmitral Doppler flow pattern is Grade II-pseudonormal filling dynamics. RIGHT VENTRICLE The right ventricle is normal size. There is normal right ventricular wall thickness. The right ventr icular systolic function is normal. ATRIA The left atrium is mildly dilated. The right atrium size is normal. The interatrial septum is intact with no evidence for an atrial septal defect or patent foramen ovale as noted on 2-D or Doppler imagi ng. AORTIC VALVE The aortic valve is normal in structure and function. The aortic valve is trileaflet. Doppler and Col or Flow revealed no significant aortic regurgitation. There is no significant aortic valvular stenosi s. There is no aortic valvular vegetation. MITRAL VALVE The mitral valve is thickened but opens well. There is no evidence of mitral valve prolapse. There is no mitral valve stenosis. Doppler and Color-flow revealed mild mitral regurgitation. TRICUSPID VALVE The tricuspid valve is normal in structure and function. Doppler and Color Flow revealed mild tricusp id regurgitation. There is moderate pulmonary hypertension. The PA pressure was estimated at 58 mmHg. There is no tricuspid valve prolapse or vegetation. There is no tricuspid valve stenosis. PULMONIC VALVE The pulmonic valve is not well visualized. GREAT VESSELS The aortic root is normal in size. The ascending aorta is normal in size. The IVC is normal in size a nd collapses >50% with inspiration. PERICARDIAL EFFUSION There is no evidence of significant pericardial effusion. Critical Notification Critical Value: No <Conclusion> The left ventricular systolic function is normal and the ejection fraction is within normal range. Th e Ejection Fraction is 60-65%. The mid to distal anterolateral wall mild hypokinesis. Doppler and Color Flow revealed mild tricuspid regurgitation. There is moderate pulmonary hypertensio n. The PA pressure was estimated at 58 mmHg. Signed by : Johnathon Ryan, Electronically Approved : 01/18/2019 14:18:39
== END | disposition home or self-care (01) ==
LOC: ECHO 12:46
PROVIDERS: ATTEND Internal Medicine Cardiovascular Disease
DX: I08.1 Rheumatic disorders of both mitral and tricuspid valves (principal); I27.20 Pulmonary hypertension, unspecified
CPT/HCPCS: 93306

== ENCOUNTER → 2021-01-06 | Outpatient (CLI) | payer MEDICARE ==
[2016-12-30 09:06] VITALS: BP 101/65
[~2021-01-06] MED LIST changes: +POTA20TA4 PO; -POTA20TA82 PO
--- NOTE | 2021-01-06 15:25 | CARD ---
MR#: [id number] Date of Study: 01/06/2021 Ordering Physician: JOHNATHON RYAN, Referring Physician: JOHNATHON RYAN, Tech: Tabitha Mauricio [facility] APPROVED REPORT EXAM: Two-dimensional and M-mode echocardiogram with Doppler and color Doppler. Other Information Quality : AverageHR: 77bpm Rhythm : NSR INDICATION Cardiomyopathy RISK FACTORS Hypertension Obesity Hyperlipidemia 2D DIMENSIONS RVDd3.9 (2.9-3.5cm)Left Atrium(2D)3.9 (1.6-4.0cm) IVSd1.1 (0.7-1.1cm)Aortic Root(2D)3.0 (2.0-3.7cm) LVDd4.6 (3.9-5.9cm)LVOT Diameter2.2 (1.8-2.4cm) PWd1.2 (0.7-1.1cm)LVDs3.1 (2.5-4.0cm) FS (%) 32.8 %SV59.0 ml LVEF(%)61.3 (>50%) Aortic Valve AoV Peak Abram.146.9cm/sAoV VTI29.1cm AO Peak GR.8.6mmHgLVOT Peak Abram.109.9cm/s AO Mean GR.4mmHgAVA (VMAX)2.93cm2 Pulmonary Valve PV Peak Ndmxqqfb243.0cm/s Tricuspid Valve TR P. Hizqkwob203lm/sTR Peak Gr.36mmHg LEFT VENTRICLE The left ventricle is normal size. There is mild concentric left ventricular hypertrophy. The left ve ntricular systolic function is moderately impaired. Estimated ejection fraction 35-40%. Abnormal sept al motion probably due to conduction abnormality. Transmitral Doppler flow pattern is Grade II-pseudo normal filling dynamics. RIGHT VENTRICLE The right ventricle is normal size. There is normal right ventricular wall thickness. The right ventr icular systolic function is normal. ATRIA The left atrium is moderately dilated. The right atrium size is normal. The interatrial septum is int act with no evidence for an atrial septal defect or patent foramen ovale as noted on 2-D or Doppler i maging. AORTIC VALVE The aortic valve is normal in structure and function. Doppler and Color Flow revealed mild aortic reg urgitation. There is no significant aortic valvular stenosis. MITRAL VALVE The mitral valve is normal in structure and function. There is no evidence of mitral valve prolapse. There is no mitral valve stenosis. Doppler and Color-flow revealed moderate mitral regurgitation. TRICUSPID VALVE The tricuspid valve is normal in structure and function. Doppler and Color Flow revealed mild tricusp id regurgitation. There is no tricuspid valve stenosis. PULMONIC VALVE The pulmonary valve is normal in structure and function. Doppler and Color Flow revealed moderate pul shasta valvular regurgitation. GREAT VESSELS The aortic root is normal in size. The ascending aorta is normal in size. The IVC is normal in size a nd collapses >50% with inspiration. PERICARDIAL EFFUSION There is no evidence of significant pericardial effusion. Critical Notification Critical Value: No <Conclusion> The left ventricular systolic function is moderately impaired. Estimated ejection fraction 35-40%. Mild aortic regurgitation. Moderate mitral regurgitation. Mild tricuspid regurgitation. There is no evidence of significant pericardial effusion. Signed by : Clayton Cummings, Electronically Approved : 01/06/2021 15:24:53
== END ==
LOC: ECHO 09:49
PROVIDERS: ATTEND Internal Medicine Cardiovascular Disease
DX: I08.8 Other rheumatic multiple valve diseases (principal)
CPT/HCPCS: 93306